=== PATIENT | male | born 1955 | race Caucasian/White ===

== ENCOUNTER → 2017-09-18 06:40 | Outpatient (CLI) | payer OTHER, SELFPAY ==
[2017-09-18 09:01] LABS: ALB/GLOB Ratio 0.9 RATIO (0.9-2.4); AST(SGOT) 26 U/L (15-37); Alanine Aminotransfer ALT/SGPT 50 U/L (16-61); Albumin, Serum 3.5 g/dL (3.2-5.0); Alkaline Phosphatase 68 U/L (45-117); Anion Gap 6 (5-15); BUN 19 mg/dL (7-18); BUN/Creat Ratio 15.8 RATIO (10-20); Calcium,Total 8.5 mg/dL (8.5-10.1); Chloride 106 mmol/L (98-107); Cholesterol 188 mg/dL (200); EST Glomerular Filtration Rate 66 mL/min (>60); Est Glom Filt Rate - Afr Amer 79 mL/min (>60); Free T3 3.4 pg/mL (2.18-3.98); Globulin 3.7 g/dL (2.2-4.2); Glucose 102 mg/dL (74-106); High Density Lipoprotein 33 mg/dL; Potassium 4.3 mmol/L (3.5-5.1); Protein, Total 7.2 g/dL (6.4-8.2); Sodium Level 141 mmol/L (136-145); T4 Free Direct 0.94 ng/dL (0.76-1.46); Thyroid Stim Hormone (TSH) 0.53 uIU/mL (0.358-3.74); Triglycerides 258 mg/dL; Very Low Density Lipoprotein 52 mg/dL (5-40)
== END ==
LOC: LAB.FUTURE 05-27 01:06 → LAB 02-29 11:05
PROVIDERS: Family Provider Family Medicine; PCP Family Medicine; Visit Provider Family Medicine
DX: Z00.00 Encounter for general adult medical examination without abnormal findings (principal); E78.5 Hyperlipidemia, unspecified; E03.9 Hypothyroidism, unspecified
CPT/HCPCS: 36415; 80053; 80061; 84439; 84443; 84481

== ENCOUNTER → 2019-03-25 06:44 | Outpatient (CLI) | payer OTHER, SELFPAY ==
[2017-05-20 06:11] VITALS: BMI 31.2
[2019-03-25 07:19] LABS: Absolute Lymphocyte Count 2.01 X10^3/uL (0.83-4.51); Absolute Neutrophil Count 1.9 X10^3/uL (2.0-7.7); Basophil# 0.03 X10^3/uL; Basophil% 0.6 % (0-1); Eosinophil# 0.21 X10^3/uL; Eosinophils% 4.1 % (0-5); Hematocrit 45.4 % (40-54); Hemoglobin 15.2 g/dL (13.0-16.5); Lymphocyte # 2.01 X10^3/ul (4.0); Mean Corp Hgb Conc 33.5 g/dL (32-36); Mean Corpuscular Hgb 30.2 pg (27.0-32.0); Mean Corpuscular Volume 90.3 fL (80-94); Mean Platelet Vol. 10.3 fl (6.2-12.0); Monocyte# 1.03 X10^3/uL; NRBC Flagged by Analyzer 0 % (0-5); Neutrophil # 1.85 X10^3/uL (2.7-7.7); Neutrophil % 35.9 % (47-70); Platelet Count 208 K/mm3 (150-450); RBC Distribution Width CV 12.9 % (11.6-14.6); RBC Distribution Width SD 42.7 fl (35.1-43.9); Red Blood Count 5.03 M/mm3 (4.6-6.2); White Blood Count 5.2 K/mm3 (4.4-11.0)
[2019-03-25 07:48] LABS: AST(SGOT) 22 U/L (15-37); Alanine Aminotransfer ALT/SGPT 41 U/L (16-61); Albumin, Serum 3.8 g/dL (3.2-5.0); Alkaline Phosphatase 78 U/L (45-117); Anion Gap 7 (5-15); BUN 17 mg/dL (7-18); BUN/Creat Ratio 14.4 RATIO (10-20); Calcium,Total 8.8 mg/dL (8.5-10.1); Chloride 108 mmol/L (98-107); Cholesterol 203 mg/dL (200); Creatinine, Serum 1.18 mg/dL (0.70-1.30); EST Glomerular Filtration Rate 67 mL/min (>60); Est Glom Filt Rate - Afr Amer 81 mL/min (>60); Globulin 3.8 g/dL (2.2-4.2); Glucose 106 mg/dL (74-106); High Density Lipoprotein 36 mg/dL; PSA,Total - Annual Screen 0.86 ng/mL (0.00-4.00); Potassium 4.1 mmol/L (3.5-5.1); Protein, Total 7.6 g/dL (6.4-8.2); Sodium Level 140 mmol/L (136-145); T4 Free Direct 1.02 ng/dL (0.76-1.46); Thyroid Stim Hormone (TSH) 1.52 uIU/mL (0.358-3.74); Triglycerides 201 mg/dL; Very Low Density Lipoprotein 40 mg/dL (5-40)
[2019-03-25 11:13] LABS: Hepatitis C Antibody Non-Reactive (Nonreactive)
== END ==
PROVIDERS: Family Provider Family Medicine; PCP Family Medicine; Referring Provider Family Medicine; Visit Provider Family Medicine
DX: R53.83 Other fatigue (principal); E03.9 Hypothyroidism, unspecified; Z11.59 Encounter for screening for other viral diseases; Z91.89 Other specified personal risk factors, not elsewhere classified; Z12.5 Encounter for screening for malignant neoplasm of prostate
CPT/HCPCS: 36415; 80053; 80061; 84153; 84439; 84443; 85025; 86803; G0103

== ENCOUNTER → 2020-03-17 | Outpatient (CLI) | payer OTHER, SELFPAY ==
[2020-03-17 09:08] LABS: Absolute Lymphocyte Count 2.12 X10^3/uL (0.83-4.51); Absolute Neutrophil Count 2.8 X10^3/uL (2.0-7.7); Basophil# 0.03 X10^3/uL; Basophil% 0.5 % (0-1); Eosinophil# 0.17 X10^3/uL; Eosinophils% 2.8 % (0-5); Hematocrit 42.1 % (40-54); Hemoglobin 13.7 g/dL (13.0-16.5); Lymphocyte # 2.12 X10^3/ul (4.0); Lymphocyte % 35.5 % (19-41); Mean Corp Hgb Conc 32.5 g/dL (32-36); Mean Corpuscular Hgb 29.7 pg (27.0-32.0); Mean Corpuscular Volume 91.1 fL (80-94); Mean Platelet Vol. 10.7 fl (6.2-12.0); Monocyte# 0.85 X10^3/uL; Monocyte% 14.2 % (0-10); NRBC Flagged by Analyzer 0 % (0-5); Neutrophil # 2.79 X10^3/uL (2.7-7.7); Neutrophil % 46.8 % (47-70); Platelet Count 220 K/mm3 (150-450); RBC Distribution Width CV 12.9 % (11.6-14.6); RBC Distribution Width SD 43.3 fl (35.1-43.9); Red Blood Count 4.62 M/mm3 (4.6-6.2)
[2020-03-17 09:44] LABS: ALB/GLOB Ratio 1.1 RATIO (0.9-2.4); AST(SGOT) 21 U/L (15-37); Alanine Aminotransfer ALT/SGPT 31 U/L (16-61); Albumin, Serum 3.8 g/dL (3.2-5.0); Alkaline Phosphatase 66 U/L (45-117); Anion Gap 5 (5-15); BUN 22 mg/dL (7-18); BUN/Creat Ratio 19.8 RATIO (10-20); Calcium,Total 8.6 mg/dL (8.5-10.1); Chloride 108 mmol/L (98-107); Cholesterol 211 mg/dL (200); Creatinine, Serum 1.11 mg/dL (0.70-1.30); EST Glomerular Filtration Rate 71 mL/min (>60); Est Glom Filt Rate - Afr Amer 86 mL/min (>60); Globulin 3.6 g/dL (2.2-4.2); Glucose 104 mg/dL (74-106); High Density Lipoprotein 38 mg/dL; Protein, Total 7.4 g/dL (6.4-8.2); Sodium Level 139 mmol/L (136-145); T4 Free Direct 0.92 ng/dL (0.76-1.46); Thyroid Stim Hormone (TSH) 3.05 uIU/mL (0.358-3.74); Triglycerides 139 mg/dL; Very Low Density Lipoprotein 28 mg/dL (5-40)
== END | disposition home or self-care (01) ==
PROVIDERS: PCP Family Medicine; Visit Provider Family Medicine
DX: Z00.00 Encounter for general adult medical examination without abnormal findings (principal); E03.9 Hypothyroidism, unspecified
CPT/HCPCS: 36415; 80053; 80061; 84439; 84443; 85025

== ENCOUNTER → 2020-04-06 | Outpatient (CLI) | payer OTHER, SELFPAY ==
--- NOTE | 2020-04-06 13:22 | CT_ITS ---
STUDY: LOW DOSE CT LUNG CANCER SCREENING REASON FOR EXAM: Male, 64 years old. LUNG SCREENING, OFF/ON SMOKER X APPROX 50 YRS-1/2 PPD RADIATION DOSAGE (If Supplied By Facility): CTDIvol = ( 3.02 ) mGy, DLP = ( 100.43 ) mGycm TECHNIQUE: No contrast was administered. Low dose technique was utilized (average mAS-38 and kVp 120). 1.25 mm axial source images with a slice interval of 1.25-mm were reconstructed in lung windows. 2.5 mm axial source images with a slice interval of 2.5-mm were reconstructed in lung windows. 5.0 mm axial source images with a slice interval of 5.0-mm were reconstructed in soft tissue windows. Nodule measured using lung windows on PACS and/or independent workstation with automated measurement of minimum and maximum diameter. Nodule measurement reported as average diameter rounded to the nearest whole number. Growth is defined as an increase ins size of greater than 1.5 mm. COMPARISON: None. NODULES: No suspicious nodules are seen. Emphysema: Minimal emphysematous changes in the upper lobes. Endobronchial lesion: None Aorta: Mild calcific plaques at the level of the aortic arch. Coronary arteries: Coronary artery calcification. Heart: Unremarkable Pulmonary artery: Unremarkable Mediastinal nodes: Unremarkable Other chest and abdominal findings: Degenerative change of the thoracic spine. CT/Low Dose CT Lung Screening IMPRESSION: Lung-RADS category 2 - Continue annual screening with LDCT in 12 months. IMPORTANT NOTES FOR USE: ACR Lung-RADS Version 1.0 Assessment Categories Release Date: October 18, 2013 Category: Coded 0-4 bases on nodule(s) with highest degree of suspicion. Negative screen is defined as categories 1 and 2; a positive screen is defined as categories 3 and 4. Category 3 and 4A nodules that are unchanged on interval CT should be coded as category 2, and individuals returned to screening in 12 months. Category 4X: Category 3 or 4 nodules with additional imaging findings that increase the suspicion of lung cancer, such as spiculation, GGN that doubles in size in 1 year, enlarged lymph notes, etc. Category Modifiers: S (significant finding unrelated to lung cancer) and C (prior history of treated lung cancer) may be added to the 0-4 Lung-RADS Electronically Signed: Dell Reed, at 14:40 EDT , Service support ,
[2020-04-06 13:53] LABS: PSA,Total - Annual Screen 0.86 ng/mL (0.00-4.00)
== END | disposition home or self-care (01) ==
PROVIDERS: PCP Family Medicine; Referring Provider Family Medicine; Visit Provider Family Medicine
DX: Z00.00 Encounter for general adult medical examination without abnormal findings (principal); F17.210 Nicotine dependence, cigarettes, uncomplicated; Z12.2 Encounter for screening for malignant neoplasm of respiratory organs; Z80.1 Family history of malignant neoplasm of trachea, bronchus and lung; E03.9 Hypothyroidism, unspecified
CPT/HCPCS: 36415; 84153; G0297; G0103

== ENCOUNTER 2020-09-01 10:49 | Outpatient (RCR) | payer OTHER, SELFPAY ==
[2017-05-20 06:11] VITALS: BMI 31.2
[2020-09-01] MEDS: COVID-19 VACC, MRNA(PFIZER)/PF 30 MCG/0.3 ML SYRINGE IM (15:52)
[2020-09-22] MEDS: COVID-19 VACC, MRNA(PFIZER)/PF 30 MCG/0.3 ML SYRINGE IM (15:29)
== END 2020-11-28 23:59 ==
LOC: IMMUN 10:49
PROVIDERS: PCP Family Medicine; Visit Provider Family Medicine
DX: Z23 Encounter for immunization (principal)
CPT/HCPCS: 0001A; 0002A; 91300

== ENCOUNTER → 2020-12-06 07:01 | Outpatient (CLI) | payer OTHER, SELFPAY ==
[2017-05-20 06:11] VITALS: BMI 31.2
[2020-12-06 07:24] LABS: Absolute Lymphocyte Count 2.13 X10^3/uL (0.83-4.51); Absolute Neutrophil Count 2.7 X10^3/uL (2.0-7.7); Basophil# 0.03 X10^3/uL; Basophil% 0.5 % (0-1); Eosinophil# 0.21 X10^3/uL; Eosinophils% 3.5 % (0-5); Hematocrit 42.9 % (40-54); Hemoglobin 13.9 g/dL (13.0-16.5); Lymphocyte # 2.13 X10^3/ul (0.83-4.51); Lymphocyte % 35.7 % (19-41); Mean Corp Hgb Conc 32.4 g/dL (32-36); Mean Corpuscular Hgb 29.6 pg (27.0-32.0); Mean Corpuscular Volume 91.5 fL (80-94); Mean Platelet Vol. 10.4 fl (6.2-12.0); Monocyte# 0.87 X10^3/uL; Monocyte% 14.6 % (0-10); NRBC Flagged by Analyzer 0 % (0-5); Neutrophil # 2.71 X10^3/uL (2.7-7.7); Neutrophil % 45.4 % (47-70); Platelet Count 217 K/mm3 (150-450); RBC Distribution Width CV 13.2 % (11.6-14.6); RBC Distribution Width SD 44.3 fl (35.1-43.9); Red Blood Count 4.69 M/mm3 (4.6-6.2)
[2020-12-06 08:00] LABS: ALB/GLOB Ratio 1.1 RATIO (0.9-2.4); AST(SGOT) 14 U/L (15-37); Alanine Aminotransfer ALT/SGPT 20 U/L (16-61); Albumin, Serum 3.7 g/dL (3.2-5.0); Alkaline Phosphatase 68 U/L (45-117); Anion Gap 6 (5-15); BUN 22 mg/dL (7-18); BUN/Creat Ratio 20.6 RATIO (10-20); Calcium,Total 8.6 mg/dL (8.5-10.1); Chloride 110 mmol/L (98-107); Cholesterol 184 mg/dL (200); Creatinine, Serum 1.07 mg/dL (0.70-1.30); EST Glomerular Filtration Rate 74 mL/min (>60); Est Glom Filt Rate - Afr Amer 90 mL/min (>60); Globulin 3.4 g/dL (2.2-4.2); Glucose 99 mg/dL (74-106); High Density Lipoprotein 40 mg/dL; Potassium 4.4 mmol/L (3.5-5.1); Protein, Total 7.1 g/dL (6.4-8.2); Sodium Level 141 mmol/L (136-145); Thyroid Stim Hormone (TSH) 6.38 uIU/mL (0.358-3.74); Triglycerides 101 mg/dL; Very Low Density Lipoprotein 20 mg/dL (5-40)
== END ==
PROVIDERS: PCP Family Medicine; Referring Provider Family Medicine; Visit Provider Family Medicine
DX: Z00.00 Encounter for general adult medical examination without abnormal findings (principal); E03.9 Hypothyroidism, unspecified
CPT/HCPCS: 36415; 80053; 80061; 84439; 84443; 85025

== ENCOUNTER → 2021-01-31 07:31 | Outpatient (CLI) | payer OTHER, SELFPAY ==
[2017-05-20 06:11] VITALS: BMI 31.2
[2021-01-31 08:52] LABS: T4 Free Direct 0.88 ng/dL (0.76-1.46); Thyroid Stim Hormone (TSH) 1.98 uIU/mL (0.358-3.74)
== END ==
LOC: LAB.FUTURE 07:32 → LAB 07:34
PROVIDERS: PCP Family Medicine; Visit Provider Family Medicine
DX: E03.9 Hypothyroidism, unspecified (principal)
CPT/HCPCS: 36415; 84439; 84443

== ENCOUNTER → 2021-12-07 | Outpatient (CLI) | payer OTHER, SELFPAY ==
--- NOTE | 2021-12-07 08:24 | CT_ITS ---
STUDY: LOW DOSE CT LUNG CANCER SCREENING REASON FOR EXAM: Male, 66 years old. Patient smoked 1-2 packs per day for 50 years. RADIATION DOSAGE (If Supplied By Facility): CTDIvol = ( 3.02 ) mGy, DLP = ( 104.20 ) mGycm TECHNIQUE: No contrast was administered. Low dose technique was utilized (average mAS-38 and kVp 120). 1.25 mm axial source images with a slice interval of 1.25-mm were reconstructed in lung windows. 2.5 mm axial source images with a slice interval of 2.5-mm were reconstructed in lung windows. 5.0 mm axial source images with a slice interval of 5.0-mm were reconstructed in soft tissue windows. COMPARISON: Comparison is made with prior study 04/06/2020. NODULES: No suspicious nodules are seen. Emphysema: Minimal degree of emphysematous changes. Endobronchial lesion: Unremarkable Aorta: Minimal calcific plaques at the level aortic arch. CORONARY ARTERIES: Coronary artery calcification is seen. Heart: Unremarkable Pulmonary artery: Unremarkable Mediastinal nodes: Unremarkable Other chest and abdominal findings: CT/Low Dose CT Lung Screening IMPRESSION: Lung-RADS category 2 - Continue annual screening with LDCT in 12 months. IMPORTANT NOTES FOR USE: ACR Lung-RADS Version 1.1 Assessment Categories Release Date: 2018 Category: Coded 0-4 bases on nodule(s) with highest degree of suspicion. Negative screen is defined as categories 1 and 2; a positive screen is defined as categories 3 and 4. Category 3 and 4A nodules that are unchanged on interval CT should be coded as category 2, and individuals returned to screening in 12 months. Category 4X: Category 3 or 4 nodules with additional imaging findings that increase the suspicion of lung cancer, such as spiculation, GGN that doubles in size in 1 year, enlarged lymph notes, etc. Category Modifiers: S (significant finding unrelated to lung cancer) Electronically Signed: Dell Reed MD at 10:16 EDT ,
== END | disposition home or self-care (01) ==
LOC: CT 08:22
PROVIDERS: PCP Family Medicine; Referring Provider Family Medicine; Visit Provider Family Medicine
DX: Z12.2 Encounter for screening for malignant neoplasm of respiratory organs (principal); Z80.1 Family history of malignant neoplasm of trachea, bronchus and lung
CPT/HCPCS: 71271

== ENCOUNTER → 2022-10-22 | Outpatient (CLI) | payer MEDICARE, BC, SELFPAY ==
[2022-10-22 08:10] LABS: Absolute Lymphocyte Count 2.07 X10^3/uL (0.83-4.51); Absolute Neutrophil Count 2.7 X10^3/uL (2.0-7.7); Basophil# 0.03 X10^3/uL; Basophil% 0.5 % (0-1); Hematocrit 44.3 % (40-54); Hemoglobin 14.7 g/dL (13.0-16.5); Lymphocyte # 2.07 X10^3/ul (0.83-4.51); Lymphocyte % 34.2 % (19-41); Mean Corp Hgb Conc 33.2 g/dL (32-36); Mean Corpuscular Hgb 29.9 pg (27.0-32.0); Mean Corpuscular Volume 90.2 fL (80-94); Mean Platelet Vol. 10.1 fl (6.2-12.0); Monocyte# 0.92 X10^3/uL; Monocyte% 15.2 % (0-10); NRBC Flagged by Analyzer 0 % (0-5); Neutrophil # 2.72 X10^3/uL (2.7-7.7); Neutrophil % 44.8 % (47-70); Platelet Count 235 K/mm3 (150-450); RBC Distribution Width CV 13.1 % (11.6-14.6); RBC Distribution Width SD 43.2 fl (35.1-43.9); Red Blood Count 4.91 M/mm3 (4.6-6.2); White Blood Count 6.1 K/mm3 (4.4-11.0)
[2022-10-22 08:57] LABS: AST(SGOT) 21 U/L (15-37); Alanine Aminotransfer ALT/SGPT 38 U/L (16-61); Albumin, Serum 3.5 g/dL (3.2-5.0); Alkaline Phosphatase 68 U/L (45-117); Anion Gap 5 (5-15); BUN 19 mg/dL (7-18); BUN/Creat Ratio 17.6 RATIO (10-20); Calcium,Total 8.6 mg/dL (8.5-10.1); Chloride 108 mmol/L (98-107); Cholesterol 199 mg/dL (200); Creatinine, Serum 1.08 mg/dL (0.70-1.30); EST Glomerular Filtration Rate 73 mL/min (>60); Est Glom Filt Rate - Afr Amer 88 mL/min (>60); Globulin 3.6 g/dL (2.2-4.2); Glucose 116 mg/dL (74-106); High Density Lipoprotein 38 mg/dL; PSA,Total - Annual Screen 0.93 ng/mL (0.00-4.00); Potassium 4.2 mmol/L (3.5-5.1); Protein, Total 7.1 g/dL (6.4-8.2); Sodium Level 141 mmol/L (136-145); T4 Free Direct 0.79 ng/dL (0.76-1.46); Triglycerides 197 mg/dL; Very Low Density Lipoprotein 39 mg/dL (5-40)
== END | disposition home or self-care (01) ==
LOC: LAB 07:33
PROVIDERS: PCP Family Medicine; Referring Provider Family Medicine; Visit Provider Family Medicine
DX: Z00.00 Encounter for general adult medical examination without abnormal findings (principal); E03.9 Hypothyroidism, unspecified; Z12.5 Encounter for screening for malignant neoplasm of prostate
CPT/HCPCS: 36415; 80053; 80061; 84153; 84439; 84443; 85025; G0103

== ENCOUNTER → 2022-11-21 | Outpatient (CLI) | payer MEDICARE, BC, SELFPAY ==
--- NOTE | 2022-11-21 14:47 | RAD_ITS ---
STUDY: X-RAY - ABDOMEN/PELVIS REASON FOR EXAM: Male, 67 years old. R FLANK/ABD PAIN TECHNIQUE: Single AP view of the abdomen / pelvis. COMPARISON: None. FINDINGS: Normal visualized lung bases. There is a moderate amount of colonic fecal material. The visualized liver, spleen and kidneys are grossly normal in size and morphology. Normal soft tissue structures. 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 RAD/Abdomen Single View IMPRESSION: No acute abnormality is seen. Electronically Signed: Dell Reed MD at 14:42 EDT ,
== END | disposition home or self-care (01) ==
LOC: RAD 14:35
PROVIDERS: PCP Family Medicine; Referring Provider Family Medicine; Visit Provider Family Medicine
DX: R10.9 Unspecified abdominal pain (principal)
CPT/HCPCS: 74018

== ENCOUNTER → 2022-11-27 | Outpatient (CLI) | payer MEDICARE, BC, SELFPAY ==
--- NOTE | 2022-11-27 11:26 | US_ITS ---
STUDY: ABDOMINAL ULTRASOUND - RIGHT UPPER QUADRANT REASON FOR VISIT: Male, 67 years old ABD PAIN TECHNIQUE: Ultrasound evaluation of the right upper quadrant was performed with real-time and static chaparro-scale imaging. TECHNICAL QUALITY: Adequate. COMPARISON: None. FINDINGS: Liver: The liver measures 15.7 cm. There is increased echogenicity consistent with fatty infiltration. The bile ducts are within normal limits. There is hepatic color flow. The direction of portal flow is hepatopetal. There is no demonstrated mass lesion. Gallbladder: Normal distended gallbladder. The gallbladder wall measures 1.6 mm. There is a negative sonographic Frederick''s sign. There is no pericholecystic fluid. There are no gallstones. Common Bile Duct (C.B.D.): The common bile duct measures 3.9 mm. Pancreas: Normal size of the head, body and tail of the pancreas. There is increased echogenicity of the pancreas. There is no demonstrated pancreatic mass or cyst. Right Kidney: Normal size of the right kidney. The right kidney measures 11.2 cm x 6.2 cm x 6 cm. Normal renal cortex. The right cortex measures 1.3 cm. There is no demonstrated renal mass or cyst. There is no right hydronephrosis. US/Abdomen Limited IMPRESSION: Fatty infiltration of the liver. Electronically Signed: Dell Reed MD at 15:30 EDT ,
== END | disposition home or self-care (01) ==
PROVIDERS: PCP Family Medicine; Referring Provider Family Medicine; Visit Provider Family Medicine
DX: R10.9 Unspecified abdominal pain (principal)
CPT/HCPCS: 76705

== ENCOUNTER → 2022-12-10 | Outpatient (CLI) | payer MEDICARE, BC, SELFPAY ==
--- NOTE | 2022-12-10 08:26 | CT_ITS ---
STUDY: LOW DOSE CT LUNG CANCER SCREENING REASON FOR EXAM: Male, 67 years old. 1.5 pack per day smoker x51 years, now smokes one half pack per day RADIATION DOSAGE (If Supplied By Facility): CTDIvol = ( 3.02 ) mGy, DLP = ( 109.48 ) mGycm TECHNIQUE: No contrast was administered. Low dose technique was utilized (average mAS-38 and kVp 120). 1.25 mm axial source images with a slice interval of 1.25-mm were reconstructed in lung windows. 2.5 mm axial source images with a slice interval of 2.5-mm were reconstructed in lung windows. 5.0 mm axial source images with a slice interval of 5.0-mm were reconstructed in soft tissue windows. COMPARISON: 12/07/2021 FINDINGS: Lung windows show the lungs to be normally expanded. No organized infiltrate, effusion, or suspicious noncalcified mass or nodule. No interval change since the previous study. Limited soft tissue windows show normal-appearing thyroid gland. No suspicious axillary, mediastinal, or perihilar adenopathy. No thoracic aortic aneurysm, there are calcified coronary vessels. Bony structures show degenerative change Limited cuts through the upper abdomen do not show a suspicious abnormality. CT/Low Dose CT Lung Screening IMPRESSION: Lung-RADS category 2 - Continue annual screening with LDCT in 12 months. IMPORTANT NOTES FOR USE: ACR Lung-RADS Version 1.1 Assessment Categories Release Date: 2018 Category: Coded 0-4 bases on nodule(s) with highest degree of suspicion. Negative screen is defined as categories 1 and 2; a positive screen is defined as categories 3 and 4. Category 3 and 4A nodules that are unchanged on interval CT should be coded as category 2, and individuals returned to screening in 12 months. Category 4X: Category 3 or 4 nodules with additional imaging findings that increase the suspicion of lung cancer, such as spiculation, GGN that doubles in size in 1 year, enlarged lymph notes, etc. Category Modifiers: S (significant finding unrelated to lung cancer) Electronically Signed: Tab House MD at 9:24 EDT ,
--- NOTE | 2022-12-10 08:28 | AAAS_ITS ---
Reason For Study: Screening Aorta Measurements Aorta Doppler Measurements Proximal aorta measures2.46 x 2.48cm. in cross- Peak systolic flow velocities within the proximal sectional axis. aorta measure 85 cm/sec. Proximal aorta measures2.41cm. in longitudinal Peak systolic flow velocities within the mid aorta axis. measure 63.2 cm/sec. Mid aorta measures2.02 x 2.11cm. in cross- Peak systolic flow velocities within the distal sectional axis. aorta measure 59.6 cm/sec. Mid aorta measures2.04cm. in longitudinal axis. Distal aorta measures2.57 x 2.56cm. in cross- sectional axis. Distal aorta measures2.52cm. in longitudinal axis. Left Iliac Artery Left iliac artery measures 0.95 x 0.97 cm. in the cross-sectional axis. Left iliac artery measures 0.98 cm. in the longitudinal axis. Peak systolic velocity in the left iliac artery measures 106.7 cm/sec. Right Iliac Artery Right iliac artery measures 0.98 x 0.98 cm. in the cross-sectional axis. Right iliac artery measures 1.00 cm. in the longitudinal axis. Peak systolic velocity in the right iliac artery measures 117.6 cm/sec. Procedure Aorta IVC Iliac vasculature or bypass grafts [id number]. Exam performed in department. VL/AAA Screening Interpretation Summary Maximal diameter of the distal abdominal aorta 2.57 x 2.56 cm bordering upon ec mark. Left common iliac artery normal at 0.95 x 0.97 cm in diameter Right common iliac artery normal at 0.98 x 0.98 cm in diameter Normal aortic and iliac flow velocities identified Ordering Physician: Parish Stratton Referring Physician: Parish Stratton Performed By: Debora Yap RVT
== END | disposition home or self-care (01) ==
LOC: CT 08:25
PROVIDERS: PCP Family Medicine; Referring Provider Family Medicine; Visit Provider Family Medicine
DX: Z87.891 Personal history of nicotine dependence (principal); Z13.6 Encounter for screening for cardiovascular disorders
CPT/HCPCS: 71271; 76706

== ENCOUNTER 2022-12-17 14:45 | Outpatient (RCR) | payer MEDICARE, BC, SELFPAY ==
--- NOTE | 2022-12-17 17:04 | HP.PTEVAL ---
Patient's Visit Information PADMAJA BARROW is a 67 year old M referred to Physical Therapy by Dr. Parish Stratton DO with a diagnosis of R flank pain. Date of Evaluation: 12/17/22 Physical Therapist: Dustin Braun, PT, ATC - Visit Plan Frequency: 1x/Week Duration: 2 Weeks Plan: Follow up after pt attempts to see Chiro for possible rib dysfunction. Then educate of HEP T/S stab ex's - Subjective Pt reports he has had R flank pain for a while. Pt notes he is able to perform most of his IADL's, but reports he has severe pain when her twists his spine the wrong way. Pt reports he has had several diagnostic tests to rule out cancer, OA and stones. Pt reports he has significant pain in his side when he is trying to sleep at night. Pt denies tingling or numbness on the R side of his body. Pt describes his pain as sharp and stabbing. Pt reports he has pain in his neck at this time, as well as general pain throughout the spine.Pt reports he is not limited with mowing or walking his dog, but notes increased pain during these events. 1/10 pain at rest,10 /10 worst at pain - Pain R flank Pain Intensity (Out of 10): 1 Pain Intensity Range: 10 - Objective Neuro: B UE sensation is WNL to light touch. Palpation: Pt is very tender along the T7 rib origin and insertion. MMT: B UE's 5/5 throughout. ROM: Pt is minimally limited with T/S flex. Pt is moderately limited with R rotation and extension. Repeated movements: CORA 10x2 increased R flank pain - Balance/Special Test Scores Oswestry Low Back Score: 9 - Goals Goal 1:: I with HEP after 2 visits Goal Time Frame: 1 Week - Rehabilitation Potential Physical Therapy Diagnosis: Pt has R flank pain secondary to having R rib dysfunction Rehabilitation Potential: Good - Anticipated Interventions Patient/Client Instruction: Educate patient on: Condition, Plan of Care For the Purpose of:: To improve self management Therapeutic Exercise to Include: Strength training, Body mechanics, Postural training, Dynamic Lumbar Stabilization, Patricia Exercises For the Purpose of:: To decrease pain, To improve muscle performance and motor function Thank you for the opportunity to evaluate your patient. For Medicare and Medicare HMO plans, please review the plan of care and approve it. It will need to be FAXED BACK to us at [phone] for Medicare purposes. For Medicare only, by signing this I certify the plan of care. Please let me know if there are questions or concerns regarding this plan of care. Physician Signature: Date:
== END 2022-12-17 19:00 | disposition home or self-care (01) ==
LOC: PT 14:45
PROVIDERS: PCP Family Medicine; Referring Provider Family Medicine; Visit Provider Family Medicine
DX: R10.9 Unspecified abdominal pain (principal)
CPT/HCPCS: 97161

== ENCOUNTER 2023-06-17 19:12 | Inpatient (IN) | payer MEDICARE, BC, SELFPAY ==
[2023-06-17 19:13] VITALS: BP 201/105; PULSE 82; RESP 16; TEMP 36.1; O2SAT 99
--- NOTE | 2023-06-17 19:36 | EKG12_ITS ---
Test Reason : CP Blood Pressure : / mmHG Vent. Rate : 087 BPM Atrial Rate : 087 BPM P-R Int : 180 ms QRS Dur : 072 ms QT Int : 364 ms P-R-T Axes : 058 000 -11 degrees QTc Int : 438 ms Normal sinus rhythm Septal infarct , age undetermined Abnormal ECG Confirmed by ELOISA ARORA, LATONIA ([id number]), publishing editor DAMIEN STONE ([id number]) on 06/24/2023 8:20:39 AM Referred By: IVAN Confirmed By:LATONIA AMIN MD
--- NOTE | 2023-06-17 19:40 | RAD_ITS ---
INDICATION: chest pain EXAMINATION/TECHNIQUE: X-RAY - XR Chest 1 View COMPARISON: FINDINGS: LINES/DEVICES: None. LUNGS: No consolidation, edema or effusion. No pneumothorax. MEDIASTINUM AND CARDIOVASCULAR STRUCTURES: Cardiac silhouette not enlarged. Central airways and mediastinal contour are unremarkable. BONES AND SOFT TISSUES: Unremarkable. RAD/Chest 1 View (Portable) IMPRESSION: No radiographic evidence of acute cardiopulmonary disease. Electronically Signed: Kellie Vasquez MD at 20:29 EST Reading Location ID and State: [id number] / Tel , Service support ,
--- NOTE | 2023-06-17 19:47 | EDS_ITS ---
HPI History of Present Illness Chief Complaint: Chest Pain Informant: patient and spouse/S.O. Onset/Context/Timing Onset: Month(s) Activity at onset: gradual Timing: Intermittent Quality: Positive for Aching, Burning, Pain and Pressure Location: Substernal Current Severity: Gone Maximum Severity: Moderate Worsened By: Nothing Relieved By: Nothing Associated Symptoms: Positive for Dyspnea; Negative for Nausea, Vomiting, Diaphoresis, Cough, Fever, Lightheadedness, Acid Reflux or Palpitations Narrative Narrative: 67-year-old male no signet past medical history. For the last month and a half he has had intermittent midsternal chest pain. It is increased in the last 4 to 5 days that he now describes as a pressure that sometimes radiates to both arms. It can occur with exertion and can also occur at rest. He has no cardiac history. He has never had a stress test nor a heart cath. No history of DVT or PE or risk factors. No hemoptysis. No leg pain or swelling. No pleuritic pain. Prior Similar Symptoms: No Recent Illness/Hospitalization: No CVD Risk Factors: Positive for Smoking; Negative for Hypertension, Diabetes, Hypercholesterolemia or Family History 1' </=55 PE Risk Factors: Negative for Recent Travel/Surgery, Recent Immobilization, Prior DVT or PE, Cancer or OCP + Smoking + >/=35 TAD Risk Factors: Negative for Marfan's Syndrome [facility] Medical History (Updated 06/17/23 @ 21:[address] Wilber Cruz MD) Hypercholesteremia Hypothyroid Medical History no medical history no medical history Home Medications aspirin 81 mg tablet,delayed release 81 mg PO DAILY@0800 05/16/17 [History Last Taken Unknown] levothyroxine 175 mcg tablet 175 mcg PO DAILY 05/16/17 [History Last Taken Unknown] qrqexqnh-qdm-sdyrj acid 0.4 mg-lycopene 300 mcg-lutein 250 mcg tablet (Centrum Silver) 1 ea PO DAILY 05/16/17 [History Last Taken Unknown] omega-3 fatty acids-fish oil 684 mg-1,200 mg capsule,delayed release (One-Per-Day [place]-3) 1 ea PO DAILY 05/16/17 [History Last Taken Unknown] pravastatin 80 mg tablet 80 mg PO DAILY 05/16/17 [History Last Taken Unknown] Allergy/AdvReac Type Severity Reaction Status Date / Time No Known Allergies Allergy Verified 06/17/23 19:13 Social History Smoking Status: Former smoker ROS ROS ED ROS Narrative Intermittent chest pain. Review of Systems ROS Unobtainable: Denies due to encephalopathy Constitutional Constitutional ED: Denies chills or fever(s) Eyes Eyes: Reports none ENT ENT ED: Denies ear pain Cardiovascular Cardiovascular: Reports chest pain; Denies palpitations or racing heartbeat Respiratory/Chest Respiratory/Chest: Reports dyspnea on exertion; Denies cough Gastrointestinal Gastrointestinal: Denies abdominal pain Genitourinary Genitourinary ED: Denies dysuria or hematuria Musculoskeletal Musculoskeletal: Denies arthralgias Integumentary Denies abscess Neurologic Neurologic: Denies headache(s) Psychiatric Psychiatric: Denies anxiety or depression Endocrine Endocrinology: Denies cold intolerance or heat intolerance Hematologic/Lymphatic Hematologic/Lymphatic: Denies easy bleeding, easy bruising or lymphadenopathy Allergic/Immunologic Allergic/Immunologic ED: Denies mouth swelling, tongue swelling or urticaria EXAM Physical Exam Narrative Exam Narrative: 67-year-old male vital signs stable afebrile. Pulse ox 9 9% on room air no hypoxia. H EENT exam unremarkable. Neck nontender. Lungs clear to auscultation bilaterally. Heart regular rhythm rate about 80 no murmur. Chest wall nontender. Abdomen soft nontender. No peritoneal signs. Moving all 4 extremities. Calves nontender without edema or cords. Equal symmetrical radial pulses. Patient is awake alert no focal motor deficits. Const Vital Signs: 06/17/23 19:13 06/17/23 19:36 06/17/23 19:36 Temperature 97 F L Temperature Source Temporal Pulse Rate 82 Respiratory Rate 16 Respiratory Effort Normal Blood Pressure 201/105 H Blood Pressure Mean 137 Pulse Ox 99 Oxygen Delivery Method Room Air Positive well nourished and well developed; Negative for cachectic, contractures or unkempt General Appearance ED: well developed and NAD; Negative for unkempt, cachectic, contractures or pallor Nutritional Appearance: Negative for cachectic HEENT Reports moist mucous membranes normocephalic and atraumatic; Negative for trauma or tenderness Eyes PERRL and EOMs intact bilaterally General Eye ED: Negative for pale conjunctiva, scleral icterus or other Neck no lymphadenopathy, supple and no JVD General: Negative for tenderness Chest Wall inspection of chest normal and palpation of chest normal Chest: Negative for tenderness Resp normal respiratory effort and clear to auscultation bilaterally Effort and Inspection: Negative for respiratory distress Auscultation: Negative for rales, rhonchi or wheezes Cardio regular rate, regular rhythm, S1 normal heart sound, S2 normal heart sound and no murmurs Rate: Negative for bradycardia or tachycardic Rhythm: Negative for abnormal rhythm Peripheral Pulses: pulses 2+ throughout GI normal to inspection, nondistended, normoactive bowel sounds, soft to palpation, non-tender, non-distended and no masses Back/Spine no CVA tenderness and no thoracic nor lumbar tenderness General Back: Negative for CVA tenderness Cervical Spine: Negative for cervical spine tenderness Extremity normal to inspection General Extremety ED: Negative for edema, pulses abnormal or tenderness General Extremity: Negative for edema or pulses abnormal Neuro oriented x3, CN's II-XII intact bilaterally and no sensory deficits noted Sensorium / Orientation: awake, alert, oriented to person, oriented to place and oriented to time; Negative for confused, lethargic or stuporous Motor Exam: strength 5/5 throughout Psych mental status grossly normal Appearance: Negative for unkempt Attitude: No agitated Mood & Affect: Negative for depressed, anxious or tearful Skin no rashes or lesions noted and no wounds General Skin Exam: Negative for jaundice or pallor Rashes: No rashes noted Trauma: Negative for abrasion Heart Score History: Moderately Suspicious ECG: Normal Age: >/= 65 years Risk Factors: 1 or 2 Risk Factors Troponin: </= Normal Limit Score: 4 MDM MDM MDM Narrative Medical decision making narrative: 67-year-old male with chest pain that may be cardiac in nature. Clinical at rest or with exertion. Prior history of smoking but quit. No cardiac history. No significant family history cardiac disease. Undergo cardiac workup. Most likely will need to be admitted for a stress test. Had any cardiac testing. Repeat exam at 9:51 PM patient doing well. Currently pain free. Exam unchanged. We went over his test results. In light of his symptoms, accelerating chest pain and no specific cause at this time I encouraged him to be admitted for further evaluation and I will speak to the hospitalist about the admission. History & Record Review Discussion w/independent historian: Patient and Family Lab Data Attestation: I reviewed the patient's lab results. Lab results narrative: CBC normal white count of 6 H&H 13 and 41. Platelets 228. Chemistries show gap of 6 BUN and creatinine 25 and 1.34. Glucose 160. Troponin 12. Labs: Laboratory Results - last 24 hr 06/17/23 19:23 WBC 6.6 RBC 4.78 Hgb 13.8 Hct 41.6 MCV 87.0 MCH 28.9 MCHC 33.2 RDW Std Deviation 41.1 RDW Coeff of Jack 13.1 Plt Count 228 MPV 10.6 Immature Gran % (Auto) 0.300 Neut % (Auto) 51.8 Lymph % (Auto) 28.6 Mason % (Auto) 15.2 H Eos % (Auto) 3.5 Baso % (Auto) 0.6 Absolute Neuts (auto) 3.4 Absolute Lymphs (auto) 1.88 Nucleated RBC % 0 Sodium 140 Potassium 3.7 Chloride 108 H Carbon Dioxide 26.0 Anion Gap 6 BUN 25 H Creatinine 1.34 H Estim Creat Clear Calc 54.96 Est GFR (MDRD) Af Amer 69 Est GFR (MDRD) Non-Af 57 L BUN/Creatinine Ratio 18.7 Glucose 160 H Calcium 9.3 Troponin I High Sens 12 Radiography Chest X-Ray - ED: 1 View, Read by ED Physician, Read by Radiologist, Normal, Heart, Lungs, Mediastinum, Bony Structures and No Acute Disease Diagnostic Testing: Clinical Impression(s) from Imaging Studies Chest X-Ray 06/17/23 19:40 IMPRESSION: No radiographic evidence of acute cardiopulmonary disease. Electronically Signed: Kellie Vasquez MD at 20:29 EST Reading Location ID and State: [id number] / Tel , Service support , Chest, portable, single view shows no acute abnormality. Normal cardiac silhouette. Normal mediastinum. Normal lung hooker. Interpreted by myself and the radiologist with both agree. Rhythm Strip Rhythm Strip: Sinus Rhythm Rate: 87 Ectopy: None EKG Initial EKG: Attestation: I personally reviewed and interpreted this EKG as follows: Interpretation: Sinus Rhythm and No Acute Injury Pattern Comments: Normal sinus rhythm rate 87 no acute signs of NM or ischemia. No old EKG available. Prior: No Prior Discharge Plan Dx/Rx/DC Orders Clinical Impression: Chest pain of uncertain etiology Disposition Disposition: Acute Care Hospital [facility]
[2023-06-17 19:56] LABS: Absolute Lymphocyte Count 1.88 X10^3/uL (0.83-4.51); Absolute Neutrophil Count 3.4 X10^3/uL (2.0-7.7); Basophil# 0.04 X10^3/uL; Basophil% 0.6 % (0-1); Eosinophil# 0.23 X10^3/uL; Eosinophils% 3.5 % (0-5); Hematocrit 41.6 % (40-54); Hemoglobin 13.8 g/dL (13.0-16.5); Lymphocyte # 1.88 X10^3/ul (0.83-4.51); Lymphocyte % 28.6 % (19-41); Mean Corp Hgb Conc 33.2 g/dL (32-36); Mean Corpuscular Hgb 28.9 pg (27.0-32.0); Mean Platelet Vol. 10.6 fl (6.2-12.0); Monocyte% 15.2 % (0-10); NRBC Flagged by Analyzer 0 % (0-5); Neutrophil % 51.8 % (47-70); Platelet Count 228 K/mm3 (150-450); RBC Distribution Width CV 13.1 % (11.6-14.6); RBC Distribution Width SD 41.1 fl (35.1-43.9); Red Blood Count 4.78 M/mm3 (4.6-6.2); White Blood Count 6.6 K/mm3 (4.4-11.0)
[2023-06-17] MEDS: Aspirin 81 MG TAB.CHEW 324 MG PO (20:02)
[2023-06-17 20:10] VITALS: BMI 30.9
[2023-06-17 20:18] LABS: Anion Gap 6 (5-15); BUN 25 mg/dL (7-18); BUN/Creat Ratio 18.7 RATIO (10-20); Calcium,Total 9.3 mg/dL (8.5-10.1); Chloride 108 mmol/L (98-107); Creatinine, Serum 1.34 mg/dL (0.70-1.30); EST Glomerular Filtration Rate 57 mL/min (>60); Est Glom Filt Rate - Afr Amer 69 mL/min (>60); Estimated Creatinine Clearance 54.96 ml/min; Glucose 160 mg/dL (74-106); Potassium 3.7 mmol/L (3.5-5.1); Sodium Level 140 mmol/L (136-145); Troponin-I HS (w/2H Reflex) 12 pg/mL (3.0-78.0)
[2023-06-17 21:49] LABS: Reflex Troponin-HS? (from REC) Y
[2023-06-17 22:02] VITALS: BP 156/83; PULSE 61; RESP 14; O2SAT 94
--- NOTE | 2023-06-17 22:06 | PCM.HP.STD ---
HPI - General General Date of Admission: 06/18/23 Date of Service: 06/17/23 Chief Complaint: Chest pain HPI Narrative PADMAJA BARROW, is a 67 M who presents Worsening chest pain for the last 4 to 5 days with radiation to both arms, associated with exertion but can occur at rest. No past medical history of coronary artery disease, no family history of coronary artery disease. Recently underwent repair of his right shoulder. Has noticed similar pain while working on an elliptical during his exercise . Used to smoke about half a pack a day but has quit since last 1 month. The chest pain was usually related only to exertion, first noticed while running or using an elliptical. This has become more with rest over the last 1 month. For his pain he has taken Advil today, and his symptoms improved. At the time of presentation to the ED, his white count is 6.6, hemoglobin 13.8, platelet count 228, sodium 140, potassium 3.7, creatinine 1.3, normal troponin IV. He is being admitted for further evaluation by cardiology regarding his recurrent chest pain. [facility] Medical History (Updated 06/17/23 @ 23:35 by Elizabet Hanna) Croup Former smoker Hypercholesteremia Hypothyroid Osteoarthritis Sciatica Medical History no medical history Home Medications aspirin 81 mg tablet,delayed release 81 mg PO PRN PRN pain 05/16/17 [History Last Taken Unknown] levothyroxine 175 mcg tablet 175 mcg PO DAILY 05/16/17 [History Last Taken Unknown] Allergy/AdvReac Type Severity Reaction Status Date / Time No Known Allergies Allergy Verified 06/17/23 19:13 Surgical History (Updated 06/17/23 @ 23:35 by Elizabet Hanna) History of reverse total replacement of right shoulder joint Social History Smoking Status: Former smoker ROS Review of Systems ROS Unobtainable: Denies due to encephalopathy, due to endotracheal tube, due to mental condition, due to mental status or other Constitutional Constitutional: Denies anorexia, change in weight, chills, fatigue, fever(s), malaise, night sweats, weakness or other Eyes Eyes: Denies blurry vision, change in eye color, change in vision, discharge from eye(s), double vision, erythema, eye pain, loss of vision or other ENT HEENT: Denies abnormal hearing, dysphagia, ear pain, epistaxis, headache(s), hearing loss, nasal congestion, nasal discharge, post nasal drip, sinus pressure, sore throat or other Cardiovascular Cardiovascular: Reports chest pain; Denies claudication, dyspnea on exertion, edema, lightheadedness, orthopnea, palpitations, paroxysmal nocturnal dyspnea, rapid heart rate, syncope or other Respiratory/Chest Respiratory/Chest: Denies cough, dyspnea, excessive phlegm production, hemoptysis, productive cough, shortness of breath at rest, shortness of breath with exertion, wheezing or other Gastrointestinal Gastrointestinal: Denies abdominal pain, coffee ground emesis, constipation, diarrhea, dyspepsia, hematemesis, hematochezia, loose stools, melena, nausea, vomiting or other Genitourinary Genitourinary: Denies burning urination, difficulty urinating, dysuria, hematuria, nocturia, urinary frequency, urinary hesitancy, urinary incontinence, urinary urgency or other Vital Signs Vital Signs Vital Signs: 06/17/23 19:13 06/17/23 19:36 06/17/23 19:36 Temperature 97 F L Temperature Source Temporal Pulse Rate 82 Respiratory Rate 16 Respiratory Effort Normal Blood Pressure 201/105 H Blood Pressure Mean 137 Pulse Ox 99 Oxygen Delivery Method Room Air 06/17/23 22:02 Temperature Temperature Source Pulse Rate 61 Respiratory Rate 14 Respiratory Effort Blood Pressure 156/83 H Blood Pressure Mean 107 Pulse Ox 94 Oxygen Delivery Method Weight Weight: 209 lb 14.081 oz Body Mass Index (BMI) 30.9 Physical Exam Const alert and oriented x3 General Appearance: cooperative Resp normal respiratory effort Cardio regular rate and regular rhythm GI normal to inspection, nondistended, normoactive bowel sounds Extremity normal to inspection Neuro oriented x3 Results Medical Records Data Attestation: I reviewed the patient's medical records Lab / Micro Data Attestation: I reviewed the patient's lab results. 06/17/23 19:23 06/17/23 19:23 Labs: Laboratory Results - last 24 hr 06/17/23 19:23: WBC 6.6, RBC 4.78, Hgb 13.8, Hct 41.6, MCV 87.0, MCH 28.9, MCHC 33.2, RDW Std Deviation 41.1, RDW Coeff of Jack 13.1, Plt Count 228, MPV 10.6, Immature Gran % (Auto) 0.300, Neut % (Auto) 51.8, Lymph % (Auto) 28.6, [place] % (Auto) 15.2 H, Eos % (Auto) 3.5, Baso % (Auto) 0.6, Absolute Neuts (auto) 3.4, Absolute Lymphs (auto) 1.88, Nucleated RBC % 0, Sodium 140, Potassium 3.7, Chloride 108 H, Carbon Dioxide 26.0, Anion Gap 6, BUN 25 H, Creatinine 1.34 H, Estim Creat Clear Calc 54.96, Est GFR (MDRD) Af Amer 69, Est GFR (MDRD) Non-Af 57 L, BUN/Creatinine Ratio 18.7, Glucose 160 H, Calcium 9.3, Troponin I High Sens 12 Rhythm Strip Rhythm Strip: Sinus Rhythm Rate: 87 Ectopy: None Imagaing Radiology Impression Chest X-Ray 06/17/23 19:40 IMPRESSION: No radiographic evidence of acute cardiopulmonary disease. Electronically Signed: Kellie Vasquez MD at 20:29 EST Reading Location ID and State: [id number] / Tel , Service support , Assessment & Plan Assessment/Plan (1) Chest pain of uncertain etiology: PLAN: Plan Mr Barrow, 67 year male presents for evaluation of ongoing chest pain for the last few months. He was a prior smoker and given his age, sex and type of pain, the chest pain is probably due to acute coronary syndromes. He is stable at present. 1. Unstable angina: The Troponin levels are normal - Plan for dobutamine echo tomorow - Cardiology consult after the test results - he has no pain symptoms at present 2. Chronic Reflux: If the stress test is negative, plan for GI consult for chronic reflux symptoms - Would need EGD as an outpatient for Castellon's screening given the long standing reflux symptoms Charges/Coding Visit Charges Inpatient E&M: 20350 Init Hosp L2
[2023-06-17 22:30] LABS: Troponin-I HS 73 pg/mL (3.0-78.0)
[2023-06-17 23:56] VITALS: BP 146/92; PULSE 61; RESP 18; TEMP 35.7; O2SAT 95
[2023-06-18] VITALS (29 sets, daily range): BP systolic 100–168; BP diastolic 63–109; PULSE 49–87; RESP 11–23; TEMP 35.9–36.7; O2SAT 93–98
[2023-06-18 03:43] LABS: Absolute Neutrophil Count 2.6 X10^3/uL (2.0-7.7); Basophil# 0.03 X10^3/uL; Basophil% 0.5 % (0-1); Eosinophil# 0.21 X10^3/uL; Eosinophils% 3.7 % (0-5); Hematocrit 39.3 % (40-54); Hemoglobin 13.2 g/dL (13.0-16.5); Lymphocyte % 33.4 % (19-41); Mean Corp Hgb Conc 33.6 g/dL (32-36); Mean Corpuscular Hgb 29.7 pg (27.0-32.0); Mean Corpuscular Volume 88.3 fL (80-94); Mean Platelet Vol. 10.1 fl (6.2-12.0); Monocyte# 0.97 X10^3/uL; NRBC Flagged by Analyzer 0 % (0-5); Neutrophil # 2.56 X10^3/uL (2.7-7.7); Platelet Count 206 K/mm3 (150-450); RBC Distribution Width CV 13.2 % (11.6-14.6); RBC Distribution Width SD 42.8 fl (35.1-43.9); Red Blood Count 4.45 M/mm3 (4.6-6.2); White Blood Count 5.7 K/mm3 (4.4-11.0)
[2023-06-18 03:52] LABS: Prothrombin Time (Protime)PT. 13.6 SECONDS (11.7-14.9)
[2023-06-18 04:22] LABS: AST(SGOT) 17 U/L (15-37); Alanine Aminotransfer ALT/SGPT 24 U/L (16-61); Albumin, Serum 3.2 g/dL (3.2-5.0); Alkaline Phosphatase 75 U/L (45-117); Anion Gap 5 (5-15); BUN 24 mg/dL (7-18); BUN/Creat Ratio 21.6 RATIO (10-20); Bilirubin, Direct 0.07 mg/dL (0.00-0.30); Calcium,Total 8.2 mg/dL (8.5-10.1); Chloride 112 mmol/L (98-107); Creatinine, Serum 1.11 mg/dL (0.70-1.30); EST Glomerular Filtration Rate 71 mL/min (>60); Est Glom Filt Rate - Afr Amer 85 mL/min (>60); Estimated Creatinine Clearance 66.35 ml/min; Globulin 3.3 g/dL (2.2-4.2); Glucose 134 mg/dL (74-106); Magnesium 2.1 mg/dL (1.6-2.6); Phosphorus 3.3 mg/dL (2.5-4.9); Potassium 4.1 mmol/L (3.5-5.1); Protein, Total 6.5 g/dL (6.4-8.2); Sodium Level 141 mmol/L (136-145)
--- NOTE | 2023-06-18 05:55 | EKG12_ITS ---
Test Reason : CP ADMIT Blood Pressure : / mmHG Vent. Rate : 054 BPM Atrial Rate : 054 BPM P-R Int : 188 ms QRS Dur : 076 ms QT Int : 404 ms P-R-T Axes : 055 -10 -14 degrees QTc Int : 383 ms Sinus bradycardia Otherwise normal ECG When compared with ECG of 17-JUN-2023 19:12, MANUAL COMPARISON REQUIRED, DATA IS UNCONFIRMED Confirmed by ELOISA ARORA, LATONIA ([id number]), editorial manager MYRA MANZANO ([id number]) on 06/24/2023 10:12:44 AM Referred By: Confirmed By:LATONIA AMIN MD
[2023-06-18] MEDS: Levothyroxine 175 MCG Tablet PO (06:32)
[2023-06-18] MEDS: Aspirin E.C. 81 MG Tablet PO (06:33)
[2023-06-18] MEDS: 0.9% Saline Lock 10 ML Syringe IV ×2 (06:34→10:53)
--- NOTE | 2023-06-18 10:19 | ECHOD_ITS ---
Reason For Study: Chest Pain Procedure This was a 2D Doppler, Color Flow transthoracic echocardiogram. Exam performed portable in patient room. Left Ventricle Normal LV size. Left ventricular systolic function is normal. The estimated ejection fraction is 60 %. Normal diastololic function. No regional wall motion abnormalities noted. Right Ventricle Normal RV size. Normal systolic function. Atria The left and right atria are normal. Mitral Valve The mitral valve is structurally normal. No prolapse or stenosis seen. Trivial mitral valve insufficiency. Tricuspid Valve Normal tricuspid valve. Trivial tricuspid valve insufficiency. Right ventricular systolic pressure estimated to be 13 mmHg. Aortic Valve Trisinus/trileaflet aortic valve. Mild focal aortic valve calcification. Aortic sclerosis, no stenosis. Trivial aortic valve insufficiency. Pulmonic Valve Normal pulmonic valve. Trivial pulmonic valve insufficiency. Great Vessels Normal aortic root. Pericardium/Pleural No pericardial effusion. MMode/2D Measurements & Calculations LVIDd: 3.9 cm IVSd: 1.0 cm Ao root diam: 3.4 cm LVIDs: 2.4 cm LVPWd: 1.0 cm RVDd: 3.2 cm FS: 39.8 % LAV(MOD-bp): 31.4 ml LVAd ap4: 30.0 cm2 SV(MOD-sp4): 52.0 ml LAV(MOD-bp) Indexed: 15.1 ml/m2 LVLd ap4: 8.3 cm LAV(MOD-sp2): 30.4 ml EDV(MOD-sp4): 87.0 ml LAV(MOD-sp4): 30.8 ml EDV(sp4-el): 91.3 ml LVAs ap4: 17.0 cm2 LVLs ap4: 7.0 cm ESV(MOD-sp4): 35.0 ml ESV(sp4-el): 35.4 ml EF(MOD-sp4): 59.8 % EF(sp4-el): 61.3 % SV(sp4-el): 55.9 ml LA A4 area: 13.7 cm2 LA dimension(2D): 3.3 cm RA A4 area: 8.7 cm2 TAPSE: 2.4 cm Time Measurements MV dec time: 0.33 sec Doppler Measurements & Calculations MV E max keagan: 85.8 cm/sec Lat Peak E' Keagan: 12.6 cm/sec Med Peak E' Keagan: 7.2 cm/sec MV A max keagan: 77.3 cm/sec E/E' lat: 6.8 E/E' med: 11.9 MV E/A: 1.1 Ao V2 max: 108.9 cm/sec LV V1 max: 116.4 cm/sec MV dec slope: 264.0 cm/sec2 Ao max P.7 mmHg LV V1 max P.4 mmHg Ao V2 mean: 80.2 cm/sec Ao mean P.8 mmHg Ao V2 VTI: 24.1 cm PA V2 max: 120.3 cm/sec TR max keagan: 160.0 cm/sec TR max P.2 mmHg ECHO/Echo Complete Interpretation Summary The estimated ejection fraction is 60 %. Mild focal aortic valve calcification. Aortic sclerosis, no stenosis. Ordering Physician: Keiry Iqbla Referring Physician: Parish Stratton Performed By: Evita Lam, JOSE MARIA, RVT
--- NOTE | 2023-06-18 10:20 | PN.HOSP_ITS ---
Reason for Visit Reason for Visit: Chest pain Subjective Subjective Mr. Araiza is a 67-year-old male who presented to the emergency department on 06/17/2023 complaining of chest pain that has been ongoing for the last 4 to 5 days. He has had intermittent radiation to both arms and it seems to be more associated with exertion but reported that he was having it at rest as well. He has no history of coronary artery disease and no family history of coronary artery disease. He recently underwent a repair of his right shoulder and has had noticed similar pain while working out on his elliptical during exercise. He used to smoke about half a pack of cigarettes a day but quit about a month ago. He indicated that initially he was having symptoms only with exertion but in the last month he has been having intermittent symptoms with rest. He took Advil on the day of presentation for his pain and had improved symptoms with that. Vital signs on presentation showed markedly elevated blood pressure with a blood pressure of 201/105 but his vitals were otherwise unremarkable. His CBC was unremarkable. His chemistry panel showed mild elevated BUN and creatinine at 25 and 1.34 respectively however his morning labs show serum creatinine of 1.11. Serum glucose was 160 nonfasting but the patient does not have a history of diabetes to his knowledge. At baseline he only takes levothyroxine and aspirin. Patient states that chest pain is better since starting the nitro drip however he is complaining of a headache. Plan is for cardiac catheterization between 230 and 330 today. If patient requires transfer due to intervention not being possible here he would like to go to [facility]. No current needs. Objective Data Objective Data Vital Signs: Vital Signs Temp Pulse Resp BP Pulse Ox O2 Del Method 98.0 F 49 L 14 150/82 H 97 Room Air 06/18/23 08:30 06/18/23 08:30 06/18/23 08:30 06/18/23 08:30 06/18/23 08:30 06/18/23 08:30 Oxygen Delivery Method Room Air Weight: 92.4 kg Body Mass Index (BMI) 30.0 Lab / Micro Data 06/18/23 03:21 06/18/23 03:21 Labs: Laboratory Results - last 24 hr 06/17/23 19:23: WBC 6.6, RBC 4.78, Hgb 13.8, Hct 41.6, MCV 87.0, MCH 28.9, MCHC 33.2, RDW Std Deviation 41.1, RDW Coeff of Jack 13.1, Plt Count 228, MPV 10.6, Immature Gran % (Auto) 0.300, Neut % (Auto) 51.8, Lymph % (Auto) 28.6, [place] % (Auto) 15.2 H, Eos % (Auto) 3.5, Baso % (Auto) 0.6, Absolute Neuts (auto) 3.4, Absolute Lymphs (auto) 1.88, Nucleated RBC % 0, Sodium 140, Potassium 3.7, Chloride 108 H, Carbon Dioxide 26.0, Anion Gap 6, BUN 25 H, Creatinine 1.34 H, Estim Creat Clear Calc 54.96, Est GFR (MDRD) Af Amer 69, Est GFR (MDRD) Non-Af 57 L, BUN/Creatinine Ratio 18.7, Glucose 160 H, Calcium 9.3, Troponin I High Sens 12 06/17/23 22:06: Troponin I High Sens 73 06/18/23 03:21: WBC 5.7, RBC 4.45 L, Hgb 13.2, Hct 39.3 L, MCV 88.3, MCH 29.7, MCHC 33.6, RDW Std Deviation 42.8, RDW Coeff of Jack 13.2, Plt Count 206, MPV 10.1, Immature Gran % (Auto) 0.400, Neut % (Auto) 45.0 L, Lymph % (Auto) 33.4, [place] % (Auto) 17.0 H, Eos % (Auto) 3.7, Baso % (Auto) 0.5, Absolute Neuts (auto) 2.6, Absolute Lymphs (auto) 1.90, Nucleated RBC % 0, PT 13.6, INR 1.0, Sodium 141, Potassium 4.1, Chloride 112 H, Carbon Dioxide 24.0, Anion Gap 5, BUN 24 H, Creatinine 1.11, Estim Creat Clear Calc 66.35, Est GFR (MDRD) Af Amer 85, Est G FR (MDRD) Non-Af 71, BUN/Creatinine Ratio 21.6 H, Glucose 134 H, Calcium 8.2 L, Phosphorus 3.3, Magnesium 2.1, Total Bilirubin 0.30, Direct Bilirubin 0.07, AST 17, ALT 24, Alkaline Phosphatase 75, Total Protein 6.5, Albumin 3.2, Globulin 3.3, Albumin/Globulin Ratio 1.0, TSH 1.70 Radiography Diagnostic Testing: Radiology Impression Chest X-Ray 06/17/23 19:40 IMPRESSION: No radiographic evidence of acute cardiopulmonary disease. Electronically Signed: Kellie Vasquez MD at 20:29 EST Reading Location ID and State: [id number] / Tel , Service support , Rhythm Strip Rhythm Strip: Sinus Rhythm Rate: 87 Ectopy: None Physical Exam Const alert, oriented x3, no apparent distress, healthy appearing and well nourished Constitutional Narrative: Obese, upper middle-aged, white male, lying in bed, appears comfortable and nontoxic HEENT head/scalp atraumatic, moist oral mucous membranes and oropharynx normal HEENT Narrative: Mallampati 2-3, no thrush Resp normal respiratory effort, no retractions, no use of accessory muscles and clear to auscultation bilaterally Auscultation: Negative for rales, rhonchi or wheezes Cardio regular rate, regular rhythm, S1 normal heart sound, S2 normal heart sound, no murmurs, no rub, no gallops and no clicks GI normal to inspection, nondistended, normoactive bowel sounds, soft to palpation and non-tender Extremity no clubbing, cyanosis or edema Extremity Narrative: Pedal pulses are 2+, radial pulses are 2+ bilaterally Neuro oriented x3, moves all extremities and no focal motor deficits Speech: speech normal Psych affect normal Psych Narrative: Very pleasant, interacts appropriately, remembers me from physical therapy at [facility] Assessment & Plan Assessment/Plan (1) Unstable angina: PLAN: Plan Unstable angina -Presentation is highly concerning for cardiac event -Initial plan was for stress test however patient had a bump in his troponin from and is having ongoing chest pain intermittently -Stress test discontinued -Cardiology consult for probable catheterization -Start nitro drip -Patient with mild bradycardia and heart rates in the upper 40s so we will hold on beta-marley at this time -Start low-dose lisinopril 5 mg due to elevated blood pressure -Check hemoglobin A1c and lipid panel -Transition from Pravachol to atorvastatin -Continue aspirin 81 mg daily -Repeat third troponin -Check echocardiogram -Await further input from cardiology Mild bradycardia -Heart rate this morning was 49 -Hold beta-marley -Continue to monitor Elevated blood pressure -No documented history of hypertension -Will start low-dose lisinopril -Would like to start beta-marley however heart rates preclude this at this time -Continue to monitor Hyperglycemia -Check hemoglobin A1c -Patient does not have history of diabetes Hypothyroidism -TSH is within normal limits -Continue home levothyroxine Hyperlipidemia -Patient takes Pravachol at baseline -Check lipids -Transition from Pravachol to atorvastatin due to pleiotropic effects History of tobacco abuse -Quit about 1 month ago -Recommend ongoing cessation Obesity -BMI is 30.1 -Recommend weight loss -Complicates treatment, prognosis, outcomes DVT prophylaxis -Continue enoxaparin CODE STATUS -Full code Charges/Coding Visit Charges Inpatient E&M: 30232 Subs Hosp L2
[2023-06-18] MEDS: Nitroglycerin Infusion 250 ML 3 MG CONT INF (10:48)
[2023-06-18 10:53] LABS: Troponin-I HS 34 pg/mL (3.0-78.0)
[2023-06-18 10:53] LABS: Cholesterol 197 mg/dL (200); High Density Lipoprotein 39 mg/dL; Triglycerides 193 mg/dL; Very Low Density Lipoprotein 39 mg/dL (5-40)
[2023-06-18 11:00] LABS: Hemoglobin A1c 5.4 % (3.8-5.6)
[2023-06-18] MEDS: Acetaminophen 325 MG Tablet 650 MG PO (15:08)
--- NOTE | 2023-06-18 15:47 | CASEMGMT ---
RN CM note: RN CM to room to complete initial RN CM assessment. Pt out of room at this time. RN CM to complete assessment at a later time. Domo BSN RN CM
--- NOTE | 2023-06-18 17:02 | PCM.DC.SUM ---
Providers Date of Admission: 06/17/23 Date of Discharge: 06/18/23 Primary Care Physician: Dr. Parish Stratton, Consultations 06/17/23 22:56 Consult: Cardiology Routine Consulting Provider: Graham Valadez Reason for Consult: Chest Pain EMERGENT Consult: No Notified: Yes Date Notified: 06/18/23 Time Notified: 08:25 Method of Notification: Verbal Comments:: states will be in this afternoon 06/18/23 10:14 Consult: Cardiology Routine Consulting Provider: Jenifer Nagy Reason for Consult: Unstable Angina EMERGENT Consult: No Notified: Yes Date Notified: 06/18/23 Time Notified: 10:15 Method of Notification: Verbal Reason For Visit: CHEST PAIN UNDETERMINED CAUSE Diagnosis Discharge Diagnosis (1) Unstable angina: Status: Acute Code(s): I20.0 - Unstable angina Plan Unstable angina -Presentation is highly concerning for cardiac event -Initial plan was for stress test however patient had a bump in his troponin from and is having ongoing chest pain intermittently -Stress test discontinued -Cardiology consult for probable catheterization -Start nitro drip -Patient with mild bradycardia and heart rates in the upper 40s so we will hold on beta-marley at this time -Start low-dose lisinopril 5 mg due to elevated blood pressure -Check hemoglobin A1c and lipid panel -Transition from Pravachol to atorvastatin -Continue aspirin 81 mg daily -Repeat third troponin -Check echocardiogram -Await further input from cardiology Mild bradycardia -Heart rate this morning was 49 -Hold beta-marley -Continue to monitor Elevated blood pressure -No documented history of hypertension -Will start low-dose lisinopril -Would like to start beta-marley however heart rates preclude this at this time -Continue to monitor Hyperglycemia -Check hemoglobin A1c -Patient does not have history of diabetes Hypothyroidism -TSH is within normal limits -Continue home levothyroxine Hyperlipidemia -Patient takes Pravachol at baseline -Check lipids -Transition from Pravachol to atorvastatin due to pleiotropic effects History of tobacco abuse -Quit about 1 month ago -Recommend ongoing cessation Obesity -BMI is 30.1 -Recommend weight loss -Complicates treatment, prognosis, outcomes DVT prophylaxis -Continue enoxaparin CODE STATUS -Full code Medications at Discharge Home Medications aspirin 81 mg tablet,delayed release 81 mg PO PRN PRN pain 05/16/17 levothyroxine 175 mcg tablet 175 mcg PO DAILY 05/16/17 Hospital Course Operations None Procedures 2-D Echocardiogram, Cardiac catheterization, EKG and - (Chest x-ray) Summary of Care Provided Minutes Spent on Discharge: 38 Hospital Course: Mr. Araiza is a 67-year-old male who presented to the emergency department on 06/17/2023 complaining of chest pain that has been ongoing for the last 4 to 5 days. He has had intermittent radiation to both arms and it seems to be more associated with exertion but reported that he was having it at rest as well. He has no history of coronary artery disease and no family history of coronary artery disease. He recently underwent a repair of his right shoulder and has had noticed similar pain while working out on his elliptical during exercise. He used to smoke about half a pack of cigarettes a day but quit about a month ago. He indicated that initially he was having symptoms only with exertion but in the last month he has been having intermittent symptoms with rest. He took Advil on the day of presentation for his pain and had improved symptoms with that. Vital signs on presentation showed markedly elevated blood pressure with a blood pressure of 201/105 but his vitals were otherwise unremarkable. His blood pressure did improve without any significant treatment. His CBC was unremarkable. His chemistry panel showed mild elevated BUN and creatinine at 25 and 1.34 respectively however his morning labs show serum creatinine of 1.11. Serum glucose was 160 nonfasting but the patient does not have a history of diabetes to his knowledge. We did obtain a hemoglobin A1c and it was found to be 5.4. Lipid panel revealed a total cholesterol of 197/LDL 119/HDL 39/triglycerides 193. At baseline he only takes levothyroxine and aspirin. He was started on aspirin and his Pravachol was changed to of atorvastatin 80 mg daily. Initially he was admitted and a stress test was ordered however he unfortunately had ongoing intermittent angina and his troponin went from 12-78 therefore we discontinued the stress test and cardiology was consulted. He was taken to the Control Room Helper and found to have triple-vessel disease. Cardiology felt that he needed transferred to a tertiary center for urgent bypass. The electron tube assembler discussed the case with the cardiothoracic surgeon, Dr. Cross, at [facility] and the patient was excepted by the cardiothoracic surgery. He was maintained on a heparin and nitro drip prior to discharge. Beta-marley was held due to intermittent bradycardia with heart rates in the 40s. Echocardiogram was pending at the time of discharge. Full cath report was not available at the time of discharge. Images were pushed to [facility] for review there. Patient was discharged in stable condition on 06/18/2023 to tertiary center. Discharge diagnoses: Unstable angina Triple-vessel disease Hyperlipidemia Bradycardia Elevated blood pressure without history of hypertension Hyperglycemia Hypothyroidism History of tobacco abuse Obesity Physical Exam Const alert, oriented x3, no apparent distress, healthy appearing and well nourished Constitutional Narrative: Obese, upper middle-aged, white male, lying in bed, appears comfortable and nontoxic General Appearance: cooperative, comfortable, well kempt and well developed Orientation / Consciousness: awake, oriented to person, oriented to place and oriented to time Exam Limitations: no limitations Nutritional Appearance: obese HEENT normocephalic, head/scalp atraumatic, hearing grossly normal bilaterally, moist oral mucous membranes and oropharynx normal HEENT Narrative: Mallampati 2-3, no thrush Eyes PERRL, EOMs intact bilaterally and conjunctivae normal Eyes Narrative: No scleral icterus Neck no lymphadenopathy and supple Neck Narrative: Trachea midline enlarged and Resp normal respiratory effort, no retractions, no use of accessory muscles and clear to auscultation bilaterally Auscultation: Negative for rales, rhonchi or wheezes Cardio regular rate, regular rhythm, S1 normal heart sound, S2 normal heart sound, no murmurs, no rub, no gallops and no clicks GI normal to inspection, nondistended, normoactive bowel sounds, soft to palpation and non-tender Extremity normal to inspection and no clubbing, cyanosis or edema Extremity Narrative: Pedal pulses are 2+, radial pulses are 2+ bilaterally Skin no rashes or lesions noted, no wounds, skin turgor normal and no jaundice Neuro oriented x3, CN's II-XII intact bilaterally, moves all extremities and no focal motor deficits Speech: speech normal Psych affect normal Psych Narrative: Very pleasant, interacts appropriately, remembers me from physical therapy at [facility] Weight / BMI Weight Weight: 92.4 kg Body Mass Index (BMI) 30.0 ABG / Lab / Microbiology Data 06/18/23 03:21 06/18/23 03:21 Laboratory: Laboratory Results - last 24 hr 06/17/23 19:23: WBC 6.6, RBC 4.78, Hgb 13.8, Hct 41.6, MCV 87.0, MCH 28.9, MCHC 33.2, RDW Std Deviation 41.1, RDW Coeff of Jack 13.1, Plt Count 228, MPV 10.6, Immature Gran % (Auto) 0.300, Neut % (Auto) 51.8, Lymph % (Auto) 28.6, [place] % (Auto) 15.2 H, Eos % (Auto) 3.5, Baso % (Auto) 0.6, Absolute Neuts (auto) 3.4, Absolute Lymphs (auto) 1.88, Nucleated RBC % 0, Sodium 140, Potassium 3.7, Chloride 108 H, Carbon Dioxide 26.0, Anion Gap 6, BUN 25 H, Creatinine 1.34 H, Estim Creat Clear Calc 54.96, Est GFR (MDRD) Af Amer 69, Est GFR (MDRD) Non-Af 57 L, BUN/Creatinine Ratio 18.7, Glucose 160 H, Calcium 9.3, Troponin I High Sens 12 06/17/23 22:06: Troponin I High Sens 73 06/18/23 03:21: WBC 5.7, RBC 4.45 L, Hgb 13.2, Hct 39.3 L, MCV 88.3, MCH 29.7, MCHC 33.6, RDW Std Deviation 42.8, RDW Coeff of Jack 13.2, Plt Count 206, MPV 10.1, Immature Gran % (Auto) 0.400, Neut % (Auto) 45.0 L, Lymph % (Auto) 33.4, [place] % (Auto) 17.0 H, Eos % (Auto) 3.7, Baso % (Auto) 0.5, Absolute Neuts (auto) 2.6, Absolute Lymphs (auto) 1.90, Nucleated RBC % 0, PT 13.6, INR 1.0, Sodium 141, Potassium 4.1, Chloride 112 H, Carbon Dioxide 24.0, Anion Gap 5, BUN 24 H, Creatinine 1.11, Estim Creat Clear Calc 66.35, Est GFR (MDRD) Af Amer 85, Est GFR (MDRD) Non-Af 71, BUN/Creatinine Ratio 21.6 H, Glucose 134 H, Hemoglobin A1c 5.4, Calcium 8.2 L, Phosphorus 3.3, Magnesium 2.1, Total Bilirubin 0.30, Direct Bilirubin 0.07, AST 17, ALT 24, Alkaline Phosphatase 75, Total Protein 6.5, Albumin 3.2, Globulin 3.3, Albumin/Globulin Ratio 1.0, Triglycerides 193, Cholesterol 197, LDL Cholesterol 119, VLDL Cholesterol 39, HDL Cholesterol 39 L, TSH 1.70 06/18/23 10:27: Troponin I High Sens 34 Radiography Diagnostic Testing: Radiology Impression Chest X-Ray 06/17/23 19:40 IMPRESSION: No radiographic evidence of acute cardiopulmonary disease. Electronically Signed: Kellie Vasquez MD at 20:29 EST Reading Location ID and State: [id number] / Tel , Service support , Meaningful Use Info Meaningful Use Diagnoses (Choose all that apply): None applicable Discharge Plan Admission Admit Date/Time: 06/17/23 22:34 Primary Reason for Your Visit: Chest pain Attending Provider: Keiry Iqbal Primary Care Provider: Parish Stratton Consulting Providers: Graham Valadez; Jenifer Nagy Discharge Orders/Prescriptions Prescriptions: No Action levothyroxine 175 MCG tablet 175 mcg PO DAILY aspirin 81 MG tablet 81 mg PO PRN PRN (Reason: pain) Patient Comments: pt only takes OTC aspirin for pain as needed. Referrals / Follow Up: Parish Stratton DO [Primary Care Provider] - Disposition Disposition (needs filled in before D/C Order can be placed): Acute Care Hospital Charges/Coding Visit Charges Inpatient E&M: 15366 Disch Hosp >30min
--- NOTE | 2023-06-18 17:28 | CON.PCM.CA_ITS ---
Assessment & Plan Assessment/Plan (1) Unstable angina: PLAN: Patient was taken for left heart catheterization today. Left heart catheterization showed severe multivessel CAD. I discussed the case with the CT surgeon at [facility] who accepted the patient for CABG. Please restart nitro drip. Please start patient on heparin drip. Aspirin 81 mg daily. Will start high intensity statin. Patient will need to be on beta-marley and SHELTON inhibitor if blood pressure allows. Echocardiogram today showed normal ejection fraction with no significant valvular heart disease. HPI Consult Data Date of Consult: 06/18/23 HPI Narrative Reason for Consultation: Unstable angina HPI Narrative: PADMAJA BARROW, is a 67 M who presents with chest pain. A 67-year-old male patient with no previous significant cardiac history who presented to the ED with a complaint of chest pain. Patient said for the last few months he has been having chest pain that is heavy in nature, retrosternal, related to exertion. However for the last 3 to 4 days he has been having retrosternal chest pain that is pressure in nature which has been getting worse and now it is happening at rest and radiated to both arms. 3 sets of troponins were negative. EKG showed normal sinus rhythm with no acute ST-T changes. Patient was supposed to undergo stress test today, but he continued to have alonso st pain so he was taken back to his room and started on nitro drip. Upon my evaluation of the patient he was hemodynamically stable, resting in bed comfortably, he did have mild chest pain. Denied any shortness of breath, denied PND's, denied orthopnea, denied lower extremity edema. He denied alcohol, denies drugs, he smokes following years. [facility] Medical History (Updated 06/18/23 @ 10:[address] Keiry Iqbal, ) Croup Former smoker Hypercholesteremia Hypothyroid Osteoarthritis Sciatica Medical History no medical history Home Medications aspirin 81 mg tablet,delayed release 81 mg PO PRN PRN pain 05/16/17 [History Last Taken Unknown] levothyroxine 175 mcg tablet 175 mcg PO DAILY 05/16/17 [History Last Taken Unknown] Allergy/AdvReac Type Severity Reaction Status Date / Time No Known Allergies Allergy Verified 06/17/23 19:13 Surgical History (Updated 06/17/23 @ 23:35 by Elizabet Hanna) History of reverse total replacement of right shoulder joint Social History Smoking Status: Former smoker ROS ROS Narrative 12 point review of systems were obtained, negative other than what mentioned HPI. Physical Exam Const alert, oriented x3 and no apparent distress HEENT normocephalic and head/scalp atraumatic Eyes PERRL and EOMs intact bilaterally Neck full ROM and supple Chest inspection of chest normal and palpation of chest normal Resp normal respiratory effort and clear to auscultation bilaterally Cardio regular rate, regular rhythm, S1 normal heart sound and S2 normal heart sound Rate: regular rate Rhythm: regular rhythm GI normal to inspection, nondistended, normoactive bowel sounds and soft to palpation Extremity normal to inspection and full ROM Skin no rashes or lesions noted and no wounds Psych mental status grossly normal and thought process normal Risk Stratification Risk Stratification Applicable: No Objective Data Vital Signs: Vital Signs Temp Pulse Resp BP Pulse Ox O2 Del Method 96.6 F L 54 L 17 138/73 H 96 Room Air 06/18/23 17:03 06/18/23 17:03 06/18/23 17:03 06/18/23 17:03 06/18/23 17:03 06/18/23 17:03 Oxygen Delivery Method Room Air Weight: 203 lb 11.314 oz Body Mass Index (BMI) 30.0 Intake & Output: Intake and Output for Last 24 Hours 06/16/23 06/17/23 06/18/23 23:59 23:59 23:59 Intake Total 18.60 / 18.60 Balance 18.60 / 18.60 Lab / Micro Data 06/18/23 03:21 06/18/23 03:21 Labs: Laboratory Results - last 24 hr 06/17/23 19:23: WBC 6.6, RBC 4.78, Hgb 13.8, Hct 41.6, MCV 87.0, MCH 28.9, MCHC 33.2, RDW Std Deviation 41.1, RDW Coeff of Jack 13.1, Plt Count 228, MPV 10.6, Immature Gran % (Auto) 0.300, Neut % (Auto) 51.8, Lymph % (Auto) 28.6, [place] % (Auto) 15.2 H, Eos % (Auto) 3.5, Baso % (Auto) 0.6, Absolute Neuts (auto) 3.4, Absolute Lymphs (auto) 1.88, Nucleated RBC % 0, Sodium 140, Potassium 3.7, Chloride 108 H, Carbon Dioxide 26.0, Anion Gap 6, BUN 25 H, Creatinine 1.34 H, Estim Creat Clear Calc 54.96, Est GFR (MDRD) Af Amer 69, Est GFR (MDRD) Non-Af 57 L, BUN/Creatinine Ratio 18.7, Glucose 160 H, Calcium 9.3, Troponin I High Sens 12 06/17/23 22:06: Troponin I High Sens 73 06/18/23 03:21: WBC 5.7, RBC 4.45 L, Hgb 13.2, Hct 39.3 L, MCV 88.3, MCH 29.7, MCHC 33.6, RDW Std Deviation 42.8, RDW Coeff of Jack 13.2, Plt Count 206, MPV 10.1, Immature Gran % (Auto) 0.400, Neut % (Auto) 45.0 L, Lymph % (Auto) 33.4, [place] % (Auto) 17.0 H, Eos % (Auto) 3.7, Baso % (Auto) 0.5, Absolute Neuts (auto) 2.6, Absolute Lymphs (auto) 1.90, Nucleated RBC % 0, PT 13.6, INR 1.0, Sodium 141, Potassium 4.1, Chloride 112 H, Carbon Dioxide 24.0, Anion Gap 5, BUN 24 H, Creatinine 1.11, Estim Creat Clear Calc 66.35, Est GFR (MDRD) Af Amer 85, Est GFR (MDRD) Non-Af 71, BUN/Creatinine Ratio 21.6 H, Glucose 134 H, Hemoglobin A1c 5.4, Calcium 8.2 L, Phosphorus 3.3, Magnesium 2.1, Total Bilirubin 0.30, Direct Bilirubin 0.07, AST 17, ALT 24, Alkaline Phosphatase 75, Total Protein 6.5, Albumin 3.2, Globulin 3.3, Albumin/Globulin Ratio 1.0, Triglycerides 193, Cholesterol 197, LDL Cholesterol 119, VLDL Cholesterol 39, HDL Cholesterol 39 L, TSH 1.70 06/18/23 10:27: Troponin I High Sens 34 Rhythm Strip Rhythm Strip: Sinus Rhythm Rate: 87 Ectopy: None Cardiology Labs/Tests 06/17/23 19:23: WBC 6.6, RBC 4.78, Hgb 13.8, Hct 41.6, MCV 87.0, MCH 28.9, MCHC 33.2, Plt Count 228, MPV 10.6, Immature Gran % (Auto) 0.300, Neut % (Auto) 51.8, Lymph % (Auto) 28.6, [place] % (Auto) 15.2 H, Eos % (Auto) 3.5, Baso % (Auto) 0.6, Absolute Neuts (auto) 3.4, Nucleated RBC % 0, Sodium 140, Potassium 3.7, Chloride 108 H, Carbon Dioxide 26.0, Anion Gap 6, BUN 25 H, Creatinine 1.34 H, Est GFR (MDRD) Af Amer 69, Est GFR (MDRD) Non-Af 57 L, BUN/Creatinine Ratio 18.7, Glucose 160 H, Calcium 9.3 06/18/23 03:21: WBC 5.7, RBC 4.45 L, Hgb 13.2, Hct 39.3 L, MCV 88.3, MCH 29.7, MCHC 33.6, Plt Count 206, MPV 10.1, Immature Gran % (Auto) 0.400, Neut % (Auto) 45.0 L, Lymph % (Auto) 33.4, [place] % (Auto) 17.0 H, Eos % (Auto) 3.7, Baso % (Auto) 0.5, Absolute Neuts (auto) 2.6, Nucleated RBC % 0, PT 13.6, INR 1.0, Sodium 141, Potassium 4.1, Chloride 112 H, Carbon Dioxide 24.0, Anion Gap 5, BUN 24 H, Creatinine 1.11, Est GFR (MDRD) Af Amer 85, Est GFR (MDRD) Non-Af 71, BUN/Creatinine Ratio 21.6 H, Glucose 134 H, Hemoglobin A1c 5.4, Calcium 8.2 L, Phosphorus 3.3, Magnesium 2.1, Total Bilirubin 0.30, Direct Bilirubin 0.07, Triglycerides 193, Cholesterol 197, LDL Cholesterol 119, VLDL Cholesterol 39, HDL Cholesterol 39 L Rhythm: EKG: ECHO: Stress Test: Cardiac Cath: PCI: CT Surgery: Holter monitor: EPS: PPM: CXR: Chest CT Scan: Radiography Diagnostic Testing: Radiology Impression Chest X-Ray 06/17/23 19:40 IMPRESSION: No radiographic evidence of acute cardiopulmonary disease. Electronically Signed: Kellie Vasquez MD at 20:29 EST Reading Location ID and State: [id number] / Tel , Service support ,
--- NOTE | 2023-06-18 17:42 | PCM.OPRPT ---
Problems Associated Problem List Diagnoses (1) Unstable angina:
--- NOTE | 2023-06-18 17:43 | PCIREPORT_ITS ---
PCI Cardiac Cath Report PCI Report: DATE OF PROCEDURE: 06/18/2023 PROCEDURES PERFORMED: 1. Left heart catheterization. 2. Selective left and right coronary angiography. 3. Moderate conscious sedation Indications FOR PROCEDURE: UnStable angina Complications: NONE Specimen: NONE Access: Right Radial Artery Hemostasis: TR band DESCRIPTION OF PROCEDURE: After informed consent was obtained, the patient was brought down to the sleep lab technologist in a fasting state. Right wrist area was prepped, draped and sterilized in the usual fashion. Moderate conscious sedation, administration, documentation and physiologic monitoring of the IV conscious sedation was performed under my direct supervision by a trained registered nurse. Intraservice time started?at 16:13?and ended?at 16:25. Using modified Seldinger technique, right radial artery was then cannulated. A 6-Moroccan sheath was inserted, sheath was flushed. JR4 catheter was used to engage the right coronary and JL-4 catheter was used to engage Left coronary artery. Multiple orthogonal images were then taken. JR4 catheter was used to cross the aortic valve. LV-gram was not done. . Pullback was done without any significant gradient across the aortic valve. After reviewing angiogram, decided on CVT consult. Wire and catheter were taken out. TR band was applied. The patient was sent to floor in stable condition. HEMODYNAMICS: Aortic pressure :? LVEDP: mmgh DESCRIPTION OF CORONARY ANATOMY: The left main originates from the left coronary sinus of Valsalva in the usual fashion. There was good reflux of dye from this vessel into the coronary sinus, there was no ventriculization or dampening of pressure noted.??The LM bifurcates into LAD and LCX . It has no significant CAD noted. The left anterior descending artery originates from the left main in the usual fashion. It runs in the anterior interventricular groove giving rise to multiple small diagonal arteries and multiple septal perforators and continues distally with o wrap around the apex. The LAD has 80% proximal stenosis ,, also there was 90% diffuse stenosis in the mid part . Left circumflex artery originates from the bifurcation in the usual fashion, then courses its way down the lateral atrioventricular groove, giving rise to 3 large-sized OM branches and continues distally as nondominant artery There was a 80% prox LCx stenosis at a trifurcation of 3 large size OM branches, also there was 100% occluded proximal OM1 . RCA originates from the right coronary sinus of Valsalva in the usual fashion, There was good reflux if dye from this vessel into the coronary sinus, there was no ventriculization or dampening of pressure noted. It then courses its way down the lateral atrioventricular groove, giving rise to acute marginal branch and continues distally supply right PDA, which makes it dominant artery. The RCA has 50% stenosis in the mid part of it., There was 90% proximal right PDA stenosis. CONCLUSION: 1. Significant multivessel CAD with complex anatomy . RECOMMENDATION: I consulted the CVT surgeon Dr. Cross and discussed the case with him and he accepted the patient for CABG. Patient will be transferred for CABG. Continue ASA and Heparin drip as per ACS protocol.? Restart nitro drip if patient develops chest pain Cont statin . Patient will need beta-marley and SHELTON inhibitor once blood pressure and heart rate allows. Cont statin and BB
[2023-06-18] MEDS: 0.9% Normal Saline (1000mL) 1,000 ML 100 ML IV (18:25)
[2023-06-18] MEDS: HEPARIN/D5w 25,000 UNITS 25,000 UNITS/250 ML IV.SOLN. 10 UNITS CONT INF (19:02)
[2023-06-18] MEDS: Heparin Injection (Vial) 5,000 UNIT/ML VIAL 4000 UNIT IV (19:03)
[2023-06-18] MEDS: Atorvastatin Calcium 80 MG Tablet PO (20:41)
[2023-06-18 20:49] LABS: Partial Thromboplast Time 166.3 Seconds (24.1-36.2)
--- OUTSIDE RECORDS SUMMARY | 2023-06-18 21:02 | XMS RPT_ITS | CCD ---
Author Name Unknown Address [address] [place] [address] [facility] Team Providers Care Icu Staff Nurse Name Role Phone Marietta Moses Unavailable Unavailable Medications Completed/Discontinued Medications Medication Drug Class(es) Dates Sig (Normalized) Sig (Original) Drug Treatment Unknown - unknown (1 source) No information available. Problems Problem Classification Problem Date Documented Da te Episodic/Chronic Unclassified (1 source) Screening for malignant neoplasm of colon ; Translations: [Encounter for screening for malignant neoplasm of colon] Onset: 04-14-2017 04-14-2017 Plan of Treatment Date Care Activity Detail Author Start: 05-20-2017 End: 05-20-2017 Appointment Appointment [facility] Work Phone: Start: 04-14-2017 End: 04-17-2017 Colonoscopy flx dx w/collj spec when pfrmd Colonoscopy [facility] Work Phone: Additional Source Comments FOR RECORDS PERTAINING TO PATIENTS WHO ARE OR HAVE BEEN ENROLLED IN A CHEMICAL DEPENDENCY/SUBSTANCEABUSE PROGRAM, SOME INFORMATION MAY BE OMITTED. This clinical summary was aggregated from multiple sources. Caution should be exercised in using it in the provision of clinical care. This summary normalizes information from multiple sources, and as a consequence, information in this document may materially change the coding, format and clinical context of patient data. In addition, data may be omitted in some cases. CLINICAL DECISIONS SHOULD BE BASED ON THE PRIMARY CLINICAL RECORDS. [email or web address] provides no warranty or guarantee of the accuracy or completeness of information in this document.
--- OUTSIDE RECORDS SUMMARY | 2023-06-18 21:33 | XMS RPT_ITS | CCD ---
Author Name Unknown Address [address] [place] [address] Organization [facility] Care Team Providers Care Publications Designer Name Role Phone Marietta Moses Unavailable Unavailable [...] Author Start: 05-20-2017 End: 05-20-2017 Appointment Appointment [facility] Work Phone: Start: 04-14-2017 End: 04-17-2017 Colonoscopy flx dx w/collj spec when pfrmd Colonoscopy [facility] Work Phone: Additional Source Comments [...] BE BASED ON THE PRIMARY CLINICAL RECORDS. [employer] provides no warranty or guarantee of the accuracy or completeness of information in this document.
--- OUTSIDE RECORDS SUMMARY | 2023-06-18 21:39 | XMS RPT_ITS | CCD ---
Author Name Unknown Address [address] [place] [address] Organization [facility] Care Team Providers Care Director Of Vocational Guidance Name Role Phone Marietta Moses Unavailable Unavailable [...] Author Start: 05-20-2017 End: 05-20-2017 Appointment Appointment [facility] rose mary Work Phone: Start: 04-14-2017 End: 04-17-2017 Colonoscopy flx dx w/collj spec when pfrmd Colonoscopy [facility] Work Phone: Additional Source [...] BE BASED ON THE PRIMARY CLINICAL RECORDS. [employer] provides no warranty or guarantee of the accuracy or completeness of information in this document.
--- OUTSIDE RECORDS SUMMARY | 2023-06-18 21:39 | XMS RPT_ITS | CCD ---
Author Name Unknown Address [address] [place] [address] Organization [facility] Care Team Providers Care Calender Supervisor Name Role Phone Marietta Moses Unavailable Unavailable [...] Author Start: 05-20-2017 End: 05-20-2017 Appointment Appointment [facility] rose [facility] Work Phone: Start: 04-14-2017 End: 04-17-2017 Colonoscopy flx dx w/collj spec when pfrmd Colonoscopy [facility] Work Phone: Additional Source [...] BE BASED ON THE PRIMARY CLINICAL RECORDS. [employer] provides no warranty or guarantee of the accuracy or completeness of information in this document.
--- NOTE | 2023-06-18 23:02 | NURSING ---
Report given to BECKY Moss. Pt d/c to [place] [id number] room 115
== END 2023-06-18 22:45 | disposition short-term general hospital (02) | DRG 287 ==
LOC: ED 22:05 → PCU 22:10
PROVIDERS: Admitting Provider Internal Medicine; Emergency Provider Emergency Medicine; PCP Family Medicine; Visit Provider Internal Medicine
DX: I20.0 Unstable angina (principal); E03.9 Hypothyroidism, unspecified; R00.1 Bradycardia, unspecified; E78.5 Hyperlipidemia, unspecified; I25.10 Atherosclerotic heart disease of native coronary artery without angina pectoris; E66.9 Obesity, unspecified; Z87.891 Personal history of nicotine dependence; Z79.82 Long term (current) use of aspirin; R03.0 Elevated blood-pressure reading, without diagnosis of hypertension; R73.9 Hyperglycemia, unspecified; Z79.01 Long term (current) use of anticoagulants; Z68.30 Body mass index [BMI] 30.0-30.9, adult
CPT/HCPCS: 36415; 71045; 80048; 80053; 80061; 82248; 83036; 83735; 84100; 84443; 84484; 85025; 85610; 85730; 93005; 93306; 93454; 99152; 99284; J7030; J7040; Q9967; A4216; C1769; C1894

== ENCOUNTER → 2023-07-30 | Outpatient (CLI) | payer MEDICARE, BC, SELFPAY ==
--- NOTE | 2023-07-30 09:48 | CR.HP_ITS ---
CR - History & Physical General Arrival date:: 07/30/23 Arrival time:: 09:49 Date of Referral:: 07/09/23 Date of CR Evaluation:: 07/30/23 Referring Physician: Dr. Bland Primary Diagnosis: CABG History of Present Cardiac Event Onset Date Coronary Artery Bypass Graft:: Yes Vessel: L internal mammary to L anterior descending, R internal mammary W saph vein Medications Ambulatory Orders Medication Instructions Recorded levothyroxine 175 mcg tablet 175 mcg PO DAILY 05/16/17 clopidogrel 75 mg tablet 75 mg PO DAILY 07/07/23 metoprolol tartrate 25 mg tablet 25 mg PO BID 07/07/23 pantoprazole 40 mg tablet,delayed 40 mg PO DAILY 07/07/23 release rosuvastatin 40 mg tablet 40 mg PO DAILY 07/07/23 aspirin 81 mg tablet,delayed 81 mg PO DAILY pain 07/09/23 release mirtazapine 15 mg tablet (Remeron) 15 mg PO QHS PRN 07/09/23 oxycodone 5 mg tablet 5 mg PO PRN 07/09/23 Allergies Allergies No Known Allergies Allergy (Verified 07/09/23 16:20) Sleep Disorder Evaluation Hx of Sleep Apnea: No Do you snore loudly (louder than talking or can be heard through closed doors)?: No Do you often feel tired/ fatigued/ sleepy during daytime?: No Has anyone observed you stop breathing during sleep?: No History of Hypertension (for STOP score): Yes STOP Results: Negative Advanced Directives Advanced Directives Power of Pararescue Craftsman: Yes Living Will: Yes Advance Directives Information Provided: Yes Advance Directives on File: No DNR Order?:: No Past Medical History Covid-19 Screening Physicial Symptoms Other Clinical Concerns Exposure Risk Pertinent Comorbidities 65 years or older:: Yes Has a serious heart condition:: Yes Past Medical Illness Medical History Acute non-ST elevation myocardial infarction (NSTEMI) Bradycardia Chronic total occlusion of coronary artery Croup Essential (primary) hypertension Former smoker Hypercholesteremia Hypothyroid Osteoarthritis Sciatica Syncope Unstable angina Past Surgical History Surgical History 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 Social History Smoking History Smoking Status: Former smoker Years Smokin Packs Smoked per Day: 0.5 (stopped november 2022) Alcohol Use Alcohol Usage: Yes Occupation Occupation (List type of work in comments):: Retired Hobbies, Recreation, Social Activities Hobbies: Walking and Exercise Recreational Activities: I am able to engage in all my recreational activities Social Environment Status Marital Status: Current Living Arrangements Living Environment:: Spouse Children How many children do you have?: 2 Do any of your children live nearby?: No Safety Do you feel safe in your surroundings?: Yes Assistance Do you need any assistance at home?: no Review of Systems Review of Systems Hints Review of Present Symptoms: Reports Shortness of Breath with Exertion, Operative Discomfort, Dizziness/Lightheadedness, Appetite - Normal and Appetite - Special Diet; Denies Shortness of Breath at Rest, PVD, Angina, Wound Healing, Fatigue, Heart Arrhythmia/Irregularities, Sleep - Normal or Sexual Changes Pain Is Patient Pain Free?: No Pain Location: chest Pain Level: 10 Risk Factor Assessment Chief Complaint Chief Complaint: CABG Vital Signs Pulse Ox: 97 Pulse Pulse Rate: 79 Pulse Rhythm: Regular Hypertension Blood Pressure Sitting - Left Arm: 112/70 Obesity Height: 5 ft 9 in Weight:: 194 lb Weight in Pounds: 194.0 lbs Body Mass Index (BMI): 28.6 Nutritional Referral for Obesity: No Physical Inactivity Physical Inactivity: Reg Exercise 30 min/day Risk Stratification Risk Guidelines: Moderate Risk: Risk Factor for Smoking, Risk Factor for Diabetes, Risk Factor for Obesity, Risk Factor for Sedentary Lifestyle and Risk Factor for Depression and Highest Risk: Risk Factor for Dyslipidemia and Risk Factor for Hypertension For Smoking Smoking Risk Guidelines For Dyslipidemia Dyslipidemia Risk Guidelines For Diabetes Mellitus Diabetes Risk Guidelines For Obesity/Overweight Obesity/Overweight Risk Guidelines For Hypertension Hypertension Risk Guidelines For Sedentary Lifestyle Sedentary Lifestyle Risk Guidelines For Depression Depression Risk Guidelines Motivation Motivation to Participate On a scale of 1 to 10, how prepared are you to commit to attending program?: 10 What do you see as barriers to successfully being able to complete the program?: nothing What do you see as the benefits of succesfully completing the program? In other words, what do you hope to get out of participating in the program?: better than before surgery, endurance Are there issues you are dealing with that will interfere with completing the program?: no Do you have a spouse or signficant other, family or friends who will help support you to complete the program?: yes
--- NOTE | 2023-07-30 09:55 | PCM.CR.ITP ---
Diagnosis General Information Admitting Diagnosis: CABG Personal Learning Style:: Audio/Visual Stage of change r/t lifestyle modifications:: Contemplation Gave educational material for:: Treating Heart Disease, How The Heart Works, What it means to have Heart Disease, How Coronary Artery Disease is Diagnosed, Heart Procedures, What Heart Medications Do, Risk Factors & Modifications, Living an Active Life, Nutrition, Emotions & Heart Disease, Stress Management & Relaxation and Sleep Disorders & Heart Disease Education/Goals Cardiac Rehabilitation Goals Personal Goals: Initial Assessment: Improve energy level, Get back to work, or to resume activities faster, Improve knowledge of cardiac disease, Improve muscle strength and endurance and Improve diet and eating habits (eat healthier) Scale for measuring improvement of personal goals Diagnosis & Disease Process Outcomes/Goals: Pt IDs own risk factors & lifestyle modifications by Session 10, Verbalizes symptoms of angina & response by session 3., Pt independently manages and Other Additional Outcomes/Goals: Plan/Interventions: Assist Pt to ID & engage in lifestyle modification to reduce CVD risk, Instruct on individual risk factors, Review symptoms of angina & emergency actions, Review secondary diagnosis & identify educational needs. and Other see comment 30 day Reassessments:: Not Met 30 day Reassessments:: Not Met 30 day Reassessments:: Not Met 30 day Reassessments:: Not Met Final Reassessments:: Not Met Safety Referral to Physical Therapy: No Referral to [facility] Case Management: No Fall Risk Assessed:: Yes Assistive Devices:: None Exercise - Initial Assessment Visit Date of Eval: 07/30/23 (initial eval) Mets: Pre-: >3 METS for 30 minutes by discharge, >5 METS for 30 minutes by discharge, >7 METS for 30 minutes by discharge and Unable to meet goal due to: (see comment below) Physician Prescribed Exercise Modalities: Treadmill, Airdyne, NuStep, SciFit and Lateral Animal Ecologist Frequency: 3x/week for 12 weeks [36 sessions] Intensity: 60-80% of age predicted maximum heart rate reserve Duration: 30 - 45 minutes Current METSs:: 3 Target Heart Rate:: 93-109 Resting Blood Pressure: 112/70 EKG Type: SR T abnormality Outcomes & Goals Goals:: Verbalizes understanding of THR, RPE & goal METS by session 6, Documents in home exercise log/reports 30 min aerobic 5 day/wk by DC, Demonstrates accurate pulse taking by DC and Other additional outcome/goals: see below Intervention & Plan Exercise Program Goals: Instruct on personal THR & RPE, Instruct on MET level & personal MET goal, Show patient to take own pulse /validate performance until accurate, Instruct on home exercise and Other additional plan/int Physical Activity Home Exercise Physical Activity - Home Exercise: Safe Exercise, Warm-up, Self-monitoring, Cool-Down, Home Exercise > 30 min Daily and Sitting Time <3 hours/daily Outcomes & Goals Outcomes/Goals: Demonstrates correct Warm-up/exercise Cool-Down (S3) if = 2.5 METs, Verbalizes symptoms of exercise intolerance by Session 3 (S3), Demonstrate safe equipment use (S3) & follows exercise prescrition (6) and Other: See below Intervention & Plan Plan/Intervention: Instruct warm-up & cool-down if exercising at > 2 METs, Instruct on symptoms of exercise intolerance & actions to take, Instruct & monitor on saf, Assess intial functional capacity & safety risk and Other See below Nutrition - Initial Assessment Program Goals Nutrition Program Goals Patient has diagnosis of Hyperlipidemia (ICD E78)?: Yes Visit Date of Eval: 07/30/23 (initial eval ) Cholesterol/Lipids (Other Core Measures) Determine presence & major risk factors that modify LDL goal: Cigarette smoking, Hypertension or hypertensive medication, Low HDL cholesterol <40 mg/dL*, Family history of premature CHD in Male < 55 years: female <65 yearsFa and Age men > 45 years; women >/= 55 years Outcomes/Goals: Pt IDs own risk factors & lifestyle modifications by Session 10, Verbalizes symptoms of angina & response by session 3., Pt independently manages and Other Additional Outcomes/Goals: Intervention/Plan: Advocate for lipid panel cholesterol medication if applicable, Instruct on personal lipid levels & lipid goals/NCEP guidelines, Instruct on cholesterol and Other additional plan/int Referral to dietitian:: Yes Diabetes (Other Core Measures) Diabetes Type: Not Applicable Weight Mgt (Other Care) Height: 5 ft 9 in Weight:: 194 lb BMI: 28.6 Diagnosis Overweight/Obesity BMI> 30% ICD-10 E66: No Diagnosis High BMI/Morbid Obesity BMI> 35% ICD-10 Z68: No Outcomes/Goals: Pt sets, maintains & shows weight loss goal & trend during rehab and Other additional outcomes/goals Intervention/Plan: Instruct on ideal BMI & set weight loss goal w/patient, Assist pt to ID & incorporate diet changes for weight loss by S9, Refer to Structured Weight Loss program as appropriate, Encourage goal of using 250-300dcal per session for weight loss and Other additional plan/interventions Healthy Eating Habits Will attend diet classes:: Yes Outcomes/Goals:: Consume diet rich in vegs,fruits,whole grain/high fiber,fish,lean meat, Limit sat/trans fats,cholesterol & added salts & sugars and Other additional outcome/goals: Intervention/Plan:: Assess current eating habits and Other Additional plan/interventions Education Gave educational materials for:: Signs & symptoms of hypoglycemia, Signs & symptoms of hyperglycemia, Relate diabetes to coronary artery disease and Healthy eating Core - Initial Assessment Visit Date of Eval: 07/30/23 (initial eval ) Medication Compliance Preventative Medication(s):: Aspirin, Clopidogrel/P2Y12 inhibit, Statin/lipid and Beta marley H/O mental health issues: depression, anxiety, or addiction?: No Doesn?t believe in the benefits of treatment?: No Believes medications are unnecessary or harmful?: No Has a concern about medication side effects?: No Expresses concern over the cost of medications?: No Outcomes/Goals: Verbalizes medications,desired effect & common side effects @ DC, Pt self-reports following medication regimen, Keeps card in wallet w/medications listed by DC and Other additional outcome/goals: Interventions/plans: Instruct on medication effects & side effects, Review medication list w/patient every two weeks, Instruct importance of taking meds as ordered & assist problem solving and Other additional Tobacco Use Tobacco Use: Non-smoker How long ago did you quit using tobacco products?: Greater than or equal to 6 months ago Years Smokin Do you use smokeless tobacco?: No Hypertension Hypertension Diagnosis:: Hypertension ICD-10 I10 Resting Blood Pressure:: 112/70 [place] [employer] Hypertension Guidelines Outcomes/Goals: Able to verbalize/achieve optimal blood pressure <130/80, Incorporates diet changes & exercise for blood pressure control by DC and Other additional outcomes/goals Interventions/plan: Instruct on optimal blood pressure, hypertension & medications, Instruct on effects of sodium, alcohol, stress, exercise &hypertension and Other additional plan/interventions Tobacco Cessation Referral Smoking Cessation Referral:: No Individual Education/Counseling:: No Education Schedule Given:: Yes Psychosocial - Initial Assess VIsit Date of Eval: 07/30/23 (initial eval ) History of previous Mental disease:: No Target Goals Target Goals Outcomes/Goals: See list Psychosocial Outcomes/Goals:: ID's personal stressors & 2 strategies to manage stress by discharge and Other Additional outcome/goals: Intervention/Plan: See List Interventions/Plan:: Assess stressors,coping strategies & signs of derpression on admission, Instruct/assist pt to develop coping & personal stress Mgt strategies, Refer to Behavioral Health if appropriate, Refer to Physician if appropriate, Instruct patient to recognize signs & symptoms of depression, Instruct patient to recog and Other additional plan/intervention Patient Health Questionnaire PHQ-9 Screening Initial Assessment: 1. Little interest or pleasure in doing things: Not at all 2. Feeling down, depressed, or hopeless: Not at all 3. Trouble falling or staying asleep, or sleeping too much: Not at all 4. Feeling tired or having little energy: Not at all 5. Poor appetite or overeating: Not at all 6. Feeling bad about yourself -- or that you are a failure or have let yourself or your family down: Not at all 7. Trouble concentrating on things, such as reading the newspaper or watching television: Not at all 8. Moving or speaking so slowly that other people could have noticed. Or the opposite - being so fidgety or restless that you have been moving around a lot more than usual: Not at all 9. Thoughts that you would be better off , or of hurting yourself in some way: Not at all How difficult have these problems made it for you to do your work, take care of things at home, or get along with other people?: Not difficult at all Total Score: 0 THERESA-Q SV Test Statements CAD is a disease of the arteries in the heart: False Examples of risk factors for heart disease: True Angina is chest pain or discomfort: False The benefits of resistance training include: True Eating more meat and dairy products: False Anti-platelet medications such as aspirin are important: False The only effective way to manage stress: False An exercise warm-up slowly increases heart rate: True Prepared, processed foods usually have high sodium: True Depression is common after a heart attack: True The statin medications lower cholesterol: True To control blood pressure, lower the amount of sodium: True If someone gets chest discomfort during walking: False Transfats are partially hydrogenated vegetable oils: True Sleep apnea that is not treated increases the risk: True To control cholesterol, one should become a vegetarian: False Someone knows if he/she is exercising at the right level: True Diabetes cannot be prevented with exercise & health eating: True Stress is a large risk for heart attack: True A diet that can help lower blood pressure is rich in: True Total Score Total Correct Responses: 16 Self-Efficacy 6-Item Scale Initial Assessment: We would like to know how confident you are in doing certain activities. Please select your confidence level for: Fatigue Select Number: 10 Physical Discomfort or Pain Select Number: 10 Emotional Distress Select Number: 10 Other Symptoms or Health Problems Select Number: 10 Different Tasks and Activities Select Number: 10 Medication Select Number: 10 Total Score:: 10 Nutrition Survey Nutrition Survey Instructions Scoring Instructions Nutrition Survey Initial: Have you lost >10 lbs over the past 2 months without trying?: No Are you following a special diet at home for diabetes, low fat, or low salt?: Yes Are you interested in meeting with a dietitian for help understanding your diet?: Yes Do you eat less than 3 meals a day?: Yes Do you eat fatty meats ([place], sausage, ribs, etc), fried foods, desserts, large amounts of salad dressings, margarine, butter, or cheese most days?: Yes Do you have food allergies? [Enter types in comment field]: No Do you eat in restaurants more than 3 times a week?: No Do you season food with salt, seasoning salt, or garlic salt?: No Do you used canned, boxed, frozen meals, or soups, seasoning packets?: No Total Score:: 4 Exercise - Final/Discharge Physician Prescribed Exercise Modalities: Treadmill, Airdyne, NuStep, SciFit and Lateral Animal Ecologist Frequency: 3x/week for 12 weeks [36 sessions] Intensity: 60-80% of age predicted maximum heart rate reserve Current METSs:: 3 Target Heart Rate:: 93-109 Nutrition - 30-Day Assessment Weight Mgt (Other Care) Height: 5 ft 9 in Weight:: 194 lb BMI: 28.6 Nutrition - 60-Day Assessment Weight Mgt (Other Care) Height: 5 ft 9 in Weight:: 194 lb BMI: 28.6 Core - 30-Day Assessment Tobacco Use Years Smokin Core - Final Assessment Hypertension Resting Blood Pressure:: 112/70 [place] [employer] Hypertension Guidelines Core - 60-Day Assessment Hypertension Resting Blood Pressure:: 112/70 [place] [employer] Hypertension Guidelines Psychosocial - 30-Day Assess Target Goals Target Goals Psychosocial - 60-Day Assess Target Goals Target Goals Psychosocial - 90-Day Assess Target Goals Target Goals Psychosocial - Final Assessmen Target Goals Target Goals Nutrition - 90-Day Assessment Weight Mgt (Other Care) Height: 5 ft 9 in Weight:: 194 lb BMI: 28.6 Nutrition - Final Assessment Program Goals Patient has diagnosis of Hyperlipidemia (ICD E78)?: Yes Weight Mgt (Other Care) Height: 5 ft 9 in Weight:: 194 lb BMI: 28.6
[2023-07-30 10:05] VITALS: PULSE 79; O2SAT 97
[2023-07-30 10:08] VITALS: BP 112/70
[2023-07-30 10:39] VITALS: BP 112/70
[2023-07-30 10:50] VITALS: BP 112/70; BMI 28.6
[2023-07-30 10:53] VITALS: BMI 28.6
== END | disposition home or self-care (01) ==
LOC: CR 09:41
PROVIDERS: PCP Family Medicine; Referring Provider Internal Medicine Cardiovascular Disease; Visit Provider Internal Medicine Cardiovascular Disease
DX: I21.4 Non-ST elevation (NSTEMI) myocardial infarction (principal)

== ENCOUNTER 2023-08-20 13:00 | Outpatient (RCR) | payer MEDICARE, BC, SELFPAY ==
[2023-07-30 10:50] VITALS: BMI 28.6
== END 2023-08-21 23:59 ==
LOC: CR 13:00
PROVIDERS: PCP Family Medicine; Referring Provider Internal Medicine Cardiovascular Disease; Visit Provider Internal Medicine Cardiovascular Disease
DX: Z95.1 Presence of aortocoronary bypass graft (principal); I25.82 Chronic total occlusion of coronary artery; I10 Essential (primary) hypertension; I20.0 Unstable angina; I25.2 Old myocardial infarction
CPT/HCPCS: 93798

== ENCOUNTER 2023-09-17 13:00 | Outpatient (RCR) | payer MEDICARE, BC, SELFPAY ==
[2023-07-30 10:50] VITALS: BMI 28.6
--- NOTE | 2023-08-27 08:03 | CR.ITP_ITS ---
Exercise - Initial Assessment Visit Session #:: 7 Nutrition - Initial Assessment Weight Mgt (Other Care) Height: 5 ft 9 in Weight:: 201 lb BMI: 29.7 Psychosocial - Initial Assess Target Goals Target Goals Patient Health Questionnaire PHQ-9 Screening 30-Day Re-eval Assessment: 1. Little interest or pleasure in doing things: Not at all 2. Feeling down, depressed, or hopeless: Not at all 3. Trouble falling or staying asleep, or sleeping too much: Not at all 4. Feeling tired or having little energy: Not at all 5. Poor appetite or overeating: Not at all 6. Feeling bad about yourself -- or that you are a failure or have let yourself or your family down: Not at all 7. Trouble concentrating on things, such as reading the newspaper or watching television: Not at all 8. Moving or speaking so slowly that other people could have noticed. Or the opposite - being so fidgety or restless that you have been moving around a lot more than usual: Not at all 9. Thoughts that you would be better off , or of hurting yourself in some way: Not at all How difficult have these problems made it for you to do your work, take care of things at home, or get along with other people?: Not difficult at all Total Score: 0 Self-Efficacy 6-Item Scale 30-Day Re-eval Assessment: We would like to know how confident you are in doing certain activities. Please select your confidence level for: Fatigue Select Number: 10 Physical Discomfort or Pain Select Number: 10 Emotional Distress Select Number: 10 Other Symptoms or Health Problems Select Number: 10 Different Tasks and Activities Select Number: 10 Medication Select Number: 10 Total Score:: 10 Nutrition Survey Nutrition Survey Instructions Scoring Instructions Exercise - 30-day Assessment Visit Date of Eval: 08/27/23 Session #:: 7 Physician Prescribed Exercise Modalities: Treadmill, Airdyne and NuStep Frequency: 3x/week for 12 weeks [36 sessions] Intensity: 60-80% of age predicted maximum heart rate reserve Duration: 30 - 45 minutes Current METSs:: 3 Target Heart Rate:: 93-109 Current RPE:: 11 Maximum Excercise HR:: 104 Resting Blood Pressure: 118/80 Maximum Exercise Blood Pressure: 130/80 EKG Type: NSR to ST with rare PVC noted Outcomes & Goals Goals:: Verbalizes understanding of THR, RPE & goal METS by session 6, Documents in home exercise log/reports 30 min aerobic 5 day/wk by DC, Demonstrates accurate pulse taking by DC and Other additional outcome/goals: see below Intervention & Plan Exercise Program Goals: Instruct on personal THR & RPE, Instruct on MET level & personal MET goal, Show patient to take own pulse /validate performance until accurate, Instruct on home exercise and Other additional plan/int 30-day Reassessments 30 day Reassessments:: Progressing Reassessment Notes & Comments:: RPE explained Physical Activity Home Exercise Physical Activity - Home Exercise: Safe Exercise, Warm-up, Self-monitoring, Cool-Down, Home Exercise > 30 min Daily and Sitting Time <3 hours/daily Outcomes & Goals Outcomes/Goals: Demonstrates correct Warm-up/exercise Cool-Down (S3) if = 2.5 METs, Verbalizes symptoms of exercise intolerance by Session 3 (S3), Demonstrate safe equipment use (S3) & follows exercise prescrition (6) and Other: See below Intervention & Plan Plan/Intervention: Instruct warm-up & cool-down if exercising at > 2 METs, Instruct on symptoms of exercise intolerance & actions to take, Instruct & mon itor on saf, Assess intial functional capacity & safety risk and Other See below 30-day Reassessments 30 day Reassessments:: Progressing Reassessment Notes & Comments:: warm up encouraged Nutrition - 30-Day Assessment Program Goals Nutrition Program Goals Patient has diagnosis of Hyperlipidemia (ICD E78)?: Yes Visit Date of Eval: 08/27/23 Session #:: 7 Cholesterol/Lipids (Other Core Measures) Determine presence & major risk factors that modify LDL goal: Cigarette smoking, Hypertension or hypertensive medication, Low HDL cholesterol <40 mg/dL*, Family history of premature CHD in Male < 55 years: female <65 yearsFa and Age men > 45 years; women >/= 55 years Outcomes/Goals: Pt IDs own risk factors & lifestyle modifications by Session 10, Verbalizes symptoms of angina & response by session 3., Pt independently manages and Other Additional Outcomes/Goals: Intervention/Plan: Advocate for lipid panel cholesterol medication if applicable, Instruct on personal lipid levels & lipid goals/NCEP guidelines, Instruct on cholesterol and Other additional plan/int 30-day Reassessments:: Progressing Reassessment Notes & Comments:: risk factors explained Diabetes (Other Core Measures) Diabetes Type: Not Applicable Weight Mgt (Other Care) Height: 5 ft 9 in Weight:: 201 lb BMI: 29.7 Diagnosis Overweight/Obesity BMI> 30% ICD-10 E66: No Diagnosis High BMI/Morbid Obesity BMI> 35% ICD-10 Z68: No Outcomes/Goals: Pt sets, maintains & shows weight loss goal & trend during rehab and Other additional outcomes/goals Intervention/Plan: Instruct on ideal BMI & set weight loss goal w/patient, Assist pt to ID & incorporate diet changes for weight loss by S9, Refer to Structured Weight Loss program as appropriate, Encourage goal of using 250- 300dcal per session for weight loss and Other additional plan/interventions 30 day Reassessments:: Progressing Reassessment Notes & Comments:: pt to attend nutrition class Healthy Eating Habits Will attend diet classes:: Yes Outcomes/Goals:: Consume diet rich in vegs,fruits,whole grain/high fiber,fish ,lean meat, Limit sat/trans fats,cholesterol & added salts & sugars and Other additional outcome/goals: Intervention/Plan:: Assess current eating habits and Other Additional pl an/interventions 30-day Reassessments:: Progressing Reassessment Notes & Comments:: pt to attend nutrition class Education Gave educational materials for:: Signs & symptoms of hypoglycemia, Signs & symptoms of hyperglycemia, Relate diabetes to coronary artery disease and Healthy eating Nutrition - 60-Day Assessment Weight Mgt (Other Care) Height: 5 ft 9 in Weight:: 201 lb BMI: 29.7 Core - 30-Day Assessment Visit Date of Eval: 08/27/23 Session #:: 7 Medication Compliance Preventative Medication(s):: Aspirin, Clopidogrel/P2Y12 inhibit, Statin/lipid and Beta marley H/O mental health issues: depression, anxiety, or addiction?: No Doesn?t believe in the benefits of treatment?: No Believes medications are unnecessary or harmful?: No Has a concern about medication side effects?: No Expresses concern over the cost of medications?: No Outcomes/Goals: Verbalizes medications,desired effect & common side effects @ DC, Pt self-reports following medication regimen, Keeps card in wallet w/medications listed by DC and Other additional outcome/goals: Interventions/plans: Instruct on medication effects & side effects, Review medication list w/patient every two weeks, Instruct importance of taking meds as ordered & assist problem solving and Other additional 30-day Reassessments:: Progressing Reassessment Notes & Comments:: pt encouraged to take his meds Tobacco Use Tobacco Use: Non-smoker Hypertension Hypertension Diagnosis:: Hypertension ICD-10 I10 Resting Blood Pressure:: 118/80 [place] [employer] Hypertension Guidelines Peak Exercise Blood Pressure:: 130/80 Outcomes/Goals: Able to verbalize/achieve optimal blood pressure <130/80, Incorporates diet changes & exercise for blood pressure control by DC and Other additional outcomes/goals Interventions/plan: Instruct on optimal blood pressure, hypertension & medications, Instruct on effects of sodium, alcohol, stress, exercise &hypertension and Other additional plan/interventions 30 day Reassessments:: Progressing Reassessment Notes & Comments:: pt encouraged to take his meds Tobacco Cessation Referral Smoking Cessation Referral:: No Individual Education/Counseling:: No Education Schedule Given:: Yes Psychosocial - 30-Day Assess VIsit Date of Eval: 08/27/23 Session #:: 7 History of previous Mental disease:: No Target Goals Target Goals Outcomes/Goals: See list Psychosocial Outcomes/Goals:: ID's personal stressors & 2 strategies to manage stress by discharge and Other Additional outcome/goals: Intervention/Plan: See List Interventions/Plan:: Assess stressors,coping strategies & signs of derpression on admission, Instruct/assist pt to develop coping & personal stress Mgt strategies, Refer to Behavioral Health if appropriate, Refer to Physician if appropriate, Instruct patient to recognize signs & symptoms of depression, Instruct patient to recog and Other additional plan/intervention 30-day Reassessments: 30 day Reassessments:: Met Psychosocial - 60-Day Assess Target Goals Target Goals Outcomes/Goals: See list Psychosocial Outcomes/Goals:: ID's personal stressors & 2 strategies to manage stress by discharge and Other Additional outcome/goals: Psychosocial - 90-Day Assess Target Goals Target Goals Psychosocial - Final Assessmen Target Goals Target Goals Nutrition - 90-Day Assessment Weight Mgt (Other Care) Height: 5 ft 9 in Weight:: 201 lb BMI: 29.7 Nutrition - Final Assessment Weight Mgt (Other Care) Height: 5 ft 9 in Weight:: 201 lb BMI: 29.7
[2023-08-27 08:12] VITALS: BP 118/80; BMI 29.7
== END 2023-09-21 23:59 ==
LOC: CR 13:00
PROVIDERS: PCP Family Medicine; Referring Provider Internal Medicine Cardiovascular Disease; Visit Provider Internal Medicine Cardiovascular Disease
DX: Z95.1 Presence of aortocoronary bypass graft (principal); I25.82 Chronic total occlusion of coronary artery; I10 Essential (primary) hypertension; I20.0 Unstable angina; I21.4 Non-ST elevation (NSTEMI) myocardial infarction
CPT/HCPCS: 93798

== ENCOUNTER 2023-10-08 13:00 | Outpatient (RCR) | payer MEDICARE, BC, SELFPAY ==
[2023-08-27 08:12] VITALS: BMI 29.7
[2023-09-22 00:40] VITALS: BP 118/80
--- NOTE | 2023-09-26 09:54 | CR.ITP_ITS ---
Nutrition - Initial Assessment Weight Mgt (Other Care) Height: 5 ft 9 in Weight:: 205 lb BMI: 30.2 Core - Initial Assessment Hypertension Resting Blood Pressure:: 150/72 [place] [employer] Hypertension Guidelines Psychosocial - Initial Assess Target Goals Target Goals Patient Health Questionnaire PHQ-9 Screening 60-Day Re-eval Assessment: 1. Little interest or pleasure in doing things: Not at all 2. Feeling down, depressed, or hopeless: Not at all 3. Trouble falling or staying asleep, or sleeping too much: Not at all 4. Feeling tired or having little energy: Not at all 5. Poor appetite or overeating: Not at all 6. Feeling bad about yourself -- or that you are a failure or have let yourself or your family down: Not at all 7. Trouble concentrating on things, such as reading the newspaper or watching television: Not at all 8. Moving or speaking so slowly that other people could have noticed. Or the opposite - being so fidgety or restless that you have been moving around a lot more than usual: Not at all 9. Thoughts that you would be better off , or of hurting yourself in some way: Not at all How difficult have these problems made it for you to do your work, take care of things at home, or get along with other people?: Not difficult at all Total Score: 0 Self-Efficacy 6-Item Scale 60-Day Re-eval Assessment: We would like to know how confident you are in doing certain activities. Please select your confidence level for: Fatigue Select Number: 10 Physical Discomfort or Pain Select Number: 10 Emotional Distress Select Number: 10 Other Symptoms or Health Problems Select Number: 10 Different Tasks and Activities Select Number: 10 Medication Select Number: 10 Total Score:: 10 Nutrition Survey Nutrition Survey Instructions Scoring Instructions Exercise - 60-day Assessment Visit Date of Eval: 09/26/23 Session #:: 19 Physician Prescribed Exercise Modalities: Treadmill, Rower, Airdyne, NuStep, SciFit and Lateral Geophysics Professor Frequency: 3x/week for 12 weeks [36 sessions] Intensity: 60-80% of age predicted maximum heart rate reserve Duration: 30 - 45 minutes Current METSs:: 6.1 Target Heart Rate:: 93-116 Current RPE:: 11-12 Maximum Excercise HR:: 129 Resting Blood Pressure: 136/72 Maximum Exercise Blood Pressure: 150/72 EKG Type: SR to ST with rare PVC Outcomes & Goals Goals:: Verbalizes understanding of THR, RPE & goal METS by session 6, Documents in home exercise log/reports 30 min aerobic 5 day/wk by DC, Demonstrates accurate pulse taking by DC and Other additional outcome/goals: see below Intervention & Plan Exercise Program Goals: Instruct on personal THR & RPE, Instruct on MET level & personal MET goal, Show patient to take own pulse /validate performance until accurate, Instruct on home exercise and Other additional plan/int 30-day Reassessments 30 day Reassessments:: Met Physical Activity Home Exercise Physical Activity - Home Exercise: Safe Exercise, Warm-up, Self-monitoring, Cool-Down, Home Exercise > 30 min Daily and Sitting Time <3 hours/daily Outcomes & Goals Outcomes/Goals: Demonstrates correct Warm-up/exercise Cool-Down (S3) if = 2.5 METs, Verbalizes symptoms of exercise intolerance by Session 3 (S3), Demonstrate safe equipment use (S3) & follows exercise prescrition (6) and Other: See below Intervention & Plan Plan/Intervention: Instruct warm-up & cool-down if exercising at > 2 METs, Instruct on symptoms of exercise intolerance & actions to take, Instruct & monitor on saf, Assess intial functional capacity & safety risk and Other See below 30-day Reassessments 30 day Reassessments:: Met Nutrition - 30-Day Assessment Weight Mgt (Other Care) Height: 5 ft 9 in Weight:: 205 lb BMI: 30.2 Nutrition - 60-Day Assessment Program Goals Nutrition Program Goals Patient has diagnosis of Hyperlipidemia (ICD E78)?: Yes Visit Date of Eval: 09/26/23 Session #:: 19 Cholesterol/Lipids (Other Core Measures) Determine presence & major risk factors that modify LDL goal: Cigarette smoking, Hypertension or hypertensive medication, Low HDL cholesterol <40 mg/dL*, Family history of premature CHD in Male < 55 years: female <65 yearsFa and Age men > 45 years; women >/= 55 years Outcomes/Goals: Pt IDs own risk factors & lifestyle modifications by Session 10, Verbalizes symptoms of angina & response by session 3., Pt independently manages and Other Additional Outcomes/Goals: Intervention/Plan: Advocate for lipid panel cholesterol medication if applicable, Instruct on personal lipid levels & lipid goals/NCEP guidelines, Instruct on cholesterol and Other additional plan/int 30-day Reassessments:: Met Diabetes (Other Core Measures) Diabetes Type: Not Applicable Weight Mgt (Other Care) Height: 5 ft 9 in Weight:: 205 lb BMI: 30.2 Diagnosis Overweight/Obesity BMI> 30% ICD-10 E66: Yes Diagnosis High BMI/Morbid Obesity BMI> 35% ICD-10 Z68: No Outcomes/Goals: Pt sets, maintains & shows weight loss goal & trend during rehab and Other additional outcomes/goals Intervention/Plan: Instruct on ideal BMI & set weight loss goal w/patient, Assist pt to ID & incorporate diet changes for weight loss by S9, Refer to [facility] program as appropriate, Encourage goal of using 250-300dcal per session for weight loss and Other additional plan/interventions 30 day Reassessments:: Met Healthy Eating Habits Will attend diet classes:: Yes Outcomes/Goals:: Consume diet rich in vegs,fruits,whole grain/high fiber,fish ,lean meat, Limit sat/trans fats,cholesterol & added salts & sugars and Other additional outcome/goals: Intervention/Plan:: Assess current eating habits and Other Additional pl an/interventions 30-day Reassessments:: Met Education Gave educational materials for:: Signs & symptoms of hypoglycemia, Signs & symptoms of hyperglycemia, Relate diabetes to coronary artery disease and Healthy eating Core - Final Assessment Hypertension Resting Blood Pressure:: 150/72 [place] [employer] Hypertension Guidelines Core - 60-Day Assessment Visit Date of Eval: 09/26/23 Medication Compliance Preventative Medication(s):: Aspirin, Clopidogrel/P2Y12 inhibit, Statin/lipid and Beta marley H/O mental health issues: depression, anxiety, or addiction?: No Doesn?t believe in the benefits of treatment?: No Believes medications are unnecessary or harmful?: No Has a concern about medication side effects?: No Expresses concern over the cost of medications?: No Outcomes/Goals: Verbalizes medications,desired effect & common side effects @ DC, Pt self-reports following medication regimen, Keeps card in wallet w/medications listed by DC and Other additional outcome/goals: Interventions/plans: Instruct on medication effects & side effects, Review medication list w/patient every two weeks, Instruct importance of taking meds as ordered & assist problem solving and Other additional 30-day Reassessments:: Met Tobacco Use Tobacco Use: Non-smoker Hypertension Hypertension Diagnosis:: Hypertension ICD-10 I10 Resting Blood Pressure:: 130/72 Resting Blood Pressure:: 150/72 [place] [employer] Hypertension Guidelines Outcomes/Goals: Able to verbalize/achieve optimal blood pressure <130/80, In corporates diet changes & exercise for blood pressure control by DC and Other additional outcomes/goals Interventions/plan: Instruct on optimal blood pressure, hypertension & m edications, Instruct on effects of sodium, alcohol, stress, exercise &hypertension and Other additional plan/interventions 30 day Reassessments:: Met Tobacco Cessation Referral Smoking Cessation Referral:: No Individual Education/Counseling:: No Education Schedule Given:: Yes Psychosocial - 30-Day Assess Target Goals Target Goals Outcomes/Goals: See list Psychosocial Outcomes/Goals:: ID's personal stressors & 2 strategies to manage stress by discharge and Other Additional outcome/goals: Psychosocial - 60-Day Assess VIsit Date of Eval: 09/26/23 Session #:: 19 History of previous Mental disease:: No Target Goals Target Goals Outcomes/Goals: See list Psychosocial Outcomes/Goals:: ID's personal stressors & 2 strategies to manage stress by discharge and Other Additional outcome/goals: Intervention/Plan: See List Interventions/Plan:: Assess stressors,coping strategies & signs of derpression on admission, Instruct/assist pt to develop coping & personal stress Mgt strategies, Refer to Behavioral Health if appropriate, Refer to Physician if appropriate, Instruct patient to recognize signs & symptoms of depression, Instruct patient to recog and Other additional plan/intervention 30-day Reassessments: 30 day Reassessments:: Met Psychosocial - 90-Day Assess Target Goals Target Goals Psychosocial - Final Assessmen Target Goals Target Goals Nutrition - 90-Day Assessment Weight Mgt (Other Care) Height: 5 ft 9 in Weight:: 205 lb BMI: 30.2 Nutrition - Final Assessment Weight Mgt (Other Care) Height: 5 ft 9 in Weight:: 205 lb BMI: 30.2
[2023-09-26 09:59] VITALS: BP 136/72; BMI 30.2
[2023-09-26 10:07] VITALS: BP 130/72; BP 150/72
== END 2023-10-21 23:59 ==
LOC: CR 13:00
PROVIDERS: PCP Family Medicine; Referring Provider Internal Medicine Cardiovascular Disease; Visit Provider Internal Medicine Cardiovascular Disease
DX: Z95.1 Presence of aortocoronary bypass graft (principal); I25.82 Chronic total occlusion of coronary artery; I10 Essential (primary) hypertension; I20.0 Unstable angina; I21.4 Non-ST elevation (NSTEMI) myocardial infarction
CPT/HCPCS: 93798

== ENCOUNTER → 2023-12-15 | Outpatient (CLI) | payer MEDICARE, BC, SELFPAY ==
[2023-07-30 10:50] VITALS: BMI 28.6
[2023-09-26 09:59] VITALS: BMI 30.2
--- NOTE | 2023-12-15 07:58 | CT_ITS ---
STUDY: LOW DOSE CT LUNG CANCER SCREENING REASON FOR EXAM: Male, 68 years old. HISTORY OF TOBACCO USE. Patient smoked 1 pack per day for 50 years. RADIATION DOSAGE (If Supplied By Facility): CTDIvol = ( 4.02 ) mGy, DLP = ( 139.44 ) mGycm TECHNIQUE: No contrast was administered. Low dose technique was utilized (average mAS-38 and kVp 120). 1.25 mm axial source images with a slice interval of 1.25-mm were reconstructed in lung windows. 2.5 mm axial source images with a slice interval of 2.5-mm were reconstructed in lung windows. 5.0 mm axial source images with a slice interval of 5.0-mm were reconstructed in soft tissue windows. COMPARISON: Comparison is made with prior study dated December 10, 2022. NODULES: No suspicious nodules are seen. Emphysema: Minimal increased markings in the right middle lobe anteriorly suggestive of scarring. Endobronchial lesion: None Aorta: Unremarkable CORONARY ARTERIES: Coronary artery calcification is seen. Heart: Prior CABG. Pulmonary artery: Unremarkable Mediastinal nodes: Small benign-appearing mediastinal lymph nodes. Other chest and abdominal findings: CT/Low Dose CT Lung Screening IMPRESSION: Lung-RADS category 2 - Continue annual screening with LDCT in 12 months. IMPORTANT NOTES FOR USE: ACR Lung-RADS Version 1.1 Assessment Categories Release Date: 2018 Category: Coded 0-4 bases on nodule(s) with highest degree of suspicion. Negative screen is defined as categories 1 and 2; a positive screen is defined as categories 3 and 4. Category 3 and 4A nodules that are unchanged on interval CT should be coded as category 2, and individuals returned to screening in 12 months. Category 4X: Category 3 or 4 nodules with additional imaging findings that increase the suspicion of lung cancer, such as spiculation, GGN that doubles in size in 1 year, enlarged lymph notes, etc. Category Modifiers: S (significant finding unrelated to lung cancer) Electronically Signed: Dell Reed MD at 14:50 EDT ,
[2023-12-15 08:53] LABS: Absolute Lymphocyte Count 1.85 X10^3/uL (0.83-4.51); Absolute Neutrophil Count 4.2 X10^3/uL (2.0-7.7); Basophil# 0.04 X10^3/uL; Basophil% 0.6 % (0-1); Eosinophil# 0.22 X10^3/uL; Hematocrit 42.2 % (40-54); Hemoglobin 13.9 g/dL (13.0-16.5); Lymphocyte # 1.85 X10^3/ul (0.83-4.51); Lymphocyte % 25.4 % (19-41); Mean Corp Hgb Conc 32.9 g/dL (32-36); Mean Corpuscular Hgb 28.5 pg (27.0-32.0); Mean Corpuscular Volume 86.5 fL (80-94); Mean Platelet Vol. 10.3 fl (6.2-12.0); Monocyte# 0.97 X10^3/uL; Monocyte% 13.3 % (0-10); NRBC Flagged by Analyzer 0 % (0-5); Neutrophil # 4.16 X10^3/uL (2.7-7.7); Neutrophil % 57.3 % (47-70); Platelet Count 219 K/mm3 (150-450); RBC Distribution Width CV 13.5 % (11.6-14.6); RBC Distribution Width SD 42.5 fl (35.1-43.9); Red Blood Count 4.88 M/mm3 (4.6-6.2); White Blood Count 7.3 K/mm3 (4.4-11.0)
[2023-12-15 10:39] LABS: AST(SGOT) 21 U/L (15-37); Alanine Aminotransfer ALT/SGPT 25 U/L (16-61); Albumin, Serum 3.6 g/dL (3.2-5.0); Alkaline Phosphatase 82 U/L (45-117); Anion Gap 5 (5-15); BUN 19 mg/dL (7-18); CRP, High Sensitivity Cardiac 0.89 mg/L; Calcium,Total 8.9 mg/dL (8.5-10.1); Chloride 109 mmol/L (98-107); Cholesterol 135 mg/dL (200); Creatinine, Serum 1.19 mg/dL (0.70-1.30); EST Glomerular Filtration Rate 65 mL/min (>60); Est Glom Filt Rate - Afr Amer 79 mL/min (>60); Globulin 3.6 g/dL (2.2-4.2); Glucose 117 mg/dL (74-106); High Density Lipoprotein 41 mg/dL; PSA,Total - Annual Screen 0.86 ng/mL (0.00-4.00); Protein, Total 7.2 g/dL (6.4-8.2); Sodium Level 138 mmol/L (136-145); T4 Free Direct 1.12 ng/dL (0.76-1.46); Thyroid Stim Hormone (TSH) 1.81 uIU/mL (0.358-3.74); Triglycerides 248 mg/dL; Very Low Density Lipoprotein 50 mg/dL (5-40)
[2023-12-15 20:43] LABS: Hemoglobin A1c 5.9 % (3.8-5.6)
== END | disposition home or self-care (01) ==
LOC: CT 07:39
PROVIDERS: PCP Family Medicine; Referring Provider Family Medicine; Visit Provider Family Medicine
DX: Z12.2 Encounter for screening for malignant neoplasm of respiratory organs (principal); Z87.891 Personal history of nicotine dependence; I25.84 Coronary atherosclerosis due to calcified coronary lesion; E03.9 Hypothyroidism, unspecified; I10 Essential (primary) hypertension; Z12.5 Encounter for screening for malignant neoplasm of prostate; R73.01 Impaired fasting glucose
CPT/HCPCS: 36415; 71271; 80053; 80061; 83036; 84153; 84439; 84443; 85025; 86141; G0103

== ENCOUNTER → 2024-09-13 | Outpatient (CLI) | payer MEDICARE, BC, SELFPAY ==
[2023-09-26 09:59] VITALS: BMI 30.2
[2024-09-13 12:46] LABS: Absolute Lymphocyte Count 2.03 X10^3/uL (0.83-4.51); Absolute Neutrophil Count 3.4 X10^3/uL (2.0-7.7); Basophil# 0.04 X10^3/uL; Basophil% 0.6 % (0-1); Eosinophil# 0.36 X10^3/uL; Eosinophils% 5.3 % (0-5); Hematocrit 43.6 % (40-54); Hemoglobin 14.3 g/dL (13.0-16.5); Lymphocyte # 2.03 X10^3/ul (0.83-4.51); Mean Corp Hgb Conc 32.8 g/dL (32-36); Mean Corpuscular Volume 88.4 fL (80-94); Mean Platelet Vol. 10.4 fl (6.2-12.0); Monocyte# 0.92 X10^3/uL; Monocyte% 13.6 % (0-10); NRBC Flagged by Analyzer 0 % (0-5); Neutrophil % 50.2 % (47-70); Platelet Count 232 K/mm3 (150-450); RBC Distribution Width CV 12.7 % (11.6-14.6); RBC Distribution Width SD 41.1 fl (35.1-43.9); Red Blood Count 4.93 M/mm3 (4.6-6.2); White Blood Count 6.8 K/mm3 (4.4-11.0)
[2024-09-14 00:22] LABS: ALB/GLOB Ratio 1.4 RATIO (0.9-2.4); AST(SGOT) 24 U/L (<=37); Alanine Aminotransfer ALT/SGPT 23 U/L (<=46); Albumin, Serum 4.4 g/dL (3.4-4.8); Alkaline Phosphatase 81 U/L (40-129); Anion Gap 13 (5-15); BUN 20 mg/dL (4-19); BUN/Creat Ratio 15.7 RATIO (10-20); Calcium,Total 9.6 mg/dL (7.6-11.0); Carbon Dioxide 21.8 mmol/L (21.0-32.0); Chloride 104 mmol/L (98-108); Creatinine, Serum 1.27 mg/dL (0.70-1.20); EST Glomerular Filtration Rate 62 (>60); Globulin 3.2 g/dL (2.2-4.2); Glucose 104 mg/dL (70-99); Protein, Total 7.6 g/dL (5.9-8.4); Sodium Level 139 mmol/L (133-145); Total Bilirubin 0.39 mg/dL (0.00-1.30)
[2024-09-14 01:15] LABS: Cholesterol 129 mg/dL (<=200); High Density Lipoprotein 43 mg/dL; Low Density Lipoprotein Calc. 46 mg/dL; Triglycerides 202 mg/dL; Very Low Density Lipoprotein 40 mg/dL (5-40); cholesterol:hdl ratio screen 3.02
[2024-09-14 13:03] LABS: Hemoglobin A1c 5.9 % (<=5.6)
== END | disposition home or self-care (01) ==
LOC: BFHLAB 09:09
PROVIDERS: PCP Family Medicine; Visit Provider Family Medicine
DX: I25.10 Atherosclerotic heart disease of native coronary artery without angina pectoris (principal); I10 Essential (primary) hypertension; E03.9 Hypothyroidism, unspecified; R73.01 Impaired fasting glucose
CPT/HCPCS: 36415; 80053; 80061; 83036; 84443; 85025

== ENCOUNTER → 2025-05-04 | Outpatient (CLI) | payer MEDICARE, BC, SELFPAY ==
[2023-09-26 09:59] VITALS: BMI 30.2
--- NOTE | 2025-05-04 14:24 | CT_ITS ---
PROCEDURE: LOW DOSE CT LUNG SCREENING 05/04/2025 REASON FOR EXAM: PERSONAL HX OF NICOTINE DEPENDENCE TECHNIQUE: Procedure Code: [id number] Modality: CT Procedure: LOW DOSE CT LUNG SCREENING Coronal and Sagittal reconstruction series were provided. One or more dose reduction techniques were used (e.g., Automated exposure control, adjustment of the mA and/or kV according to patient size, use of iterative reconstruction technique). REFERENCE LINK: [facility] Lung-RADS RADIATION DOSE SUMMARY: CTDlvol: 3.02 mGy DLP: 115.13 mGycm COMPARISON: December 15, 2023. FINDINGS: PULMONARY NODULES: (Only nodules >3mm are reported) Nodules described below are on series 1 unless otherwise specified. Pulmonary Nodules: No pulmonary nodules are seen. Hardware:None Lymph Nodes:No suspicious lymph nodes are present. Heart and Vasculature:The heart is nonenlarged. Prior CABG. Coronary Artery Calcifications: Present Lungs and Airways: Stable minimal scarring in the right middle lobe anteriorly. Pleura:No pleural effusion. Upper Abdomen:Unremarkable Bones:Degenerative changes of the thoracic spine. CT/Low Dose CT Lung Screening IMPRESSION: No suspicious nodules are seen. Stable examination. Coronary artery calcification (CAC) is is present Lung-RADS Category: 2 BENIGN (BASED ON IMAGING FEATURES OR INDOLENT BEHAVIOR). RECOMMEND 12-MONTH SCREENING LDCT. Other Significant Findings: Reading Location: [facility]
== END | disposition home or self-care (01) ==
LOC: CT 14:23
PROVIDERS: PCP Family Medicine; Referring Provider Family Medicine; Visit Provider Family Medicine
DX: Z12.2 Encounter for screening for malignant neoplasm of respiratory organs (principal); Z87.891 Personal history of nicotine dependence
CPT/HCPCS: 71271